=== PATIENT | male | born 1970 | race Hispanic/Latino ===

== ENCOUNTER 2018-02-20 10:20 | Emergency (ER) | payer SELFPAY ==
--- NOTE | 2018-02-20 11:52 | RAD ---
TWO VIEWS CHEST: Date: 02-20-18 History: Cough. FINDINGS: There is no pneumothorax, pleural fluid, lobar consolidation or alveolar edema. Inspiration is shallo w. Heart and mediastinal contours are grossly unremarkable. IMPRESSION: No focal consolidation or alveolar edema. POS: [facility]
== END 2018-02-20 11:52 | disposition home or self-care (01) ==
LOC: SCSER 10:20
DX: J06.9 Acute upper respiratory infection, unspecified (principal); E11.9 Type 2 diabetes mellitus without complications; F41.9 Anxiety disorder, unspecified; Z79.84 Long term (current) use of oral hypoglycemic drugs; Z79.82 Long term (current) use of aspirin; Z79.899 Other long term (current) drug therapy
CPT/HCPCS: 71046

== ENCOUNTER 2018-10-12 19:27 | Emergency (ER) | payer OTHER, SELFPAY ==
[2018-10-12 19:45] LABS: #Basophils 0.1 thou/uL (0.0-0.2); #Eosinphils 0.1 thou/uL (0.0-0.7); #Lymphocytes 2.6 thou/uL (1.20-3.40); #Monocytes 0.6 thou/uL (0.11-0.59); #Neutrophils 4.1 thou/uL (1.40-6.50); %Eosinophils 1.3 % (0.0-10.0); %Lymphocytes 35.3 % (21.0-51.0); %Monocytes 7.8 % (0.0-10.0); %Neutrophils 54.5 % (42.0-75.0); Hemoglobin 15.1 g/dL (14.0-18.0); Mean Corpuscular Hemoglobin 31.5 pg (27.0-31.0); Mean Corpuscular Volume 87.6 fL (78.0-98.0); Mean Platelet Volume 9.3 fL (7.4-10.4); Platelet Count 204 thou/uL (130-400); RBC Distribution Width 11.9 % (11.5-14.5); Red Blood Cell (RBC) Count 4.78 mill/uL (4.70-6.10); White Blood Cell (WBC) Count 7.4 thou/uL (4.8-10.8)
[2018-10-12 20:05] LABS: ALT (SGPT) 27 U/L (8-55); AST (SGOT) 24 U/L (5-34); Albumin 4.5 g/dL (3.5-5.0); Alkaline Phosphatase 123 U/L (40-150); Anion Gap 19 mmol/L (10-20); BUN (Urea Nitrogen) 16 mg/dL (8.9-20.6); Bilirubin, Total 0.5 mg/dL (0.2-1.2); CK (CPK) 387 U/L (30-200); Calc. Creatinine Clearance 0 mL/min (70-130); Calcium 9.7 mg/dL (7.8-10.44); Carbon Dioxide 19 mmol/L (22-29); Chloride 102 mmol/L (98-107); Estimated GFR-MDRD 63; Globulin 4.3 g/dL (2.4-3.5); Glucose 265 mg/dL (70-105); Lipase 80 U/L (8-78); Potassium 3.9 mmol/L (3.5-5.1); Protein, Total 8.8 g/dL (6.0-8.3); Sodium 136 mmol/L (136-145)
--- NOTE | 2018-10-12 21:02 | RAD ---
CHEST ONE VIEW: 10/12/18 HISTORY: Chest pain. COMPARISON: 02/20/18. FINDINGS: The cardiac silhouette is magnified by projection. Pulmonary vasculature is unremarkable. Mediastinum is midline. No lobar consolidation or evidence of pneumothorax. radiation monitor leads overlie the ch est. IMPRESSION: No active cardiopulmonary abnormalities are demonstrated. POS: [facility]
[2018-10-12 21:11] LABS: CKMB 7.2 ng/mL (0-6.6)
[2018-10-12] MEDS ORDERED: Cyclobenzaprine 10 MG TAB ONE (21:15)
[2018-10-12] MEDS ORDERED: Aspirin Chewable 81 MG TAB ONE (21:15)
[2018-10-12] MEDS ORDERED: Ketorolac Tromethamine 30 MG/ML VIAL ONE (21:15)
[2018-10-12 23:50] LABS: CKMB 6.4 ng/mL (0-6.6)
--- NOTE | 2018-10-14 22:30 | EKG ---
Test Reason : Blood Pressure : / mmHG Vent. Rate : 093 BPM Atrial Rate : 093 BPM P-R Int : 152 ms QRS Dur : 100 ms QT Int : 350 ms P-R-T Axes : 025 -28 -21 degrees QTc Int : 435 ms Normal sinus rhythm Nonspecific ST abnormality Abnormal ECG Confirmed by HARINDER BARROW D.O. ([id number]), editor farm journal ROSA ASHLEY ([id number]) on 10/14/2018 10:29:35 PM Referred By: Confirmed By:HARINDER BARROW D.O.
== END 2018-10-13 00:09 | disposition home or self-care (01) ==
LOC: ERS 19:27
DX: S20.212A Contusion of left front wall of thorax, initial encounter (principal); E11.9 Type 2 diabetes mellitus without complications; F41.9 Anxiety disorder, unspecified; Z79.899 Other long term (current) drug therapy; Z79.84 Long term (current) use of oral hypoglycemic drugs; W22.8XXA Striking against or struck by other objects, initial encounter
CPT/HCPCS: 36415; 71045; 80053; 82550; 82553; 83690; 84484; 85025; 93005; 94760; 96374; J1885

== ENCOUNTER 2018-10-31 09:02 | Emergency (ER) | payer OTHER ==
--- NOTE | 2018-10-31 10:13 | RAD ---
XR Chest Pa Lat STANDARD HISTORY: Cough COMPARISON: 02/20/2018 FINDINGS: The heart size normal. The lungs are well expanded without focal areas of consolidation, pn eumothoraces or pleural effusions. No acute osseous abnormalities are seen. IMPRESSION: No radiographic evidence of acute cardiopulmonary process.
== END 2018-10-31 10:23 | disposition home or self-care (01) ==
LOC: SCSER 09:02
DX: J06.9 Acute upper respiratory infection, unspecified (principal); E78.5 Hyperlipidemia, unspecified; I10 Essential (primary) hypertension; E11.9 Type 2 diabetes mellitus without complications; F41.9 Anxiety disorder, unspecified; Z79.82 Long term (current) use of aspirin; Z79.84 Long term (current) use of oral hypoglycemic drugs; Z79.899 Other long term (current) drug therapy
CPT/HCPCS: 71046

== ENCOUNTER 2019-04-25 09:28 | Outpatient (CLI) | payer OTHER ==
--- NOTE | 2019-04-25 12:17 | RAD ---
LEFT SHOULDER ARTHROGRAM: HISTORY: Left shoulder pain. EXPOSURE: 1.5 minutes. 227.3 mcg/m2. FINDINGS: Initial 3 view shoulder radiograph demonstrates chronic change. There appears to be a possible Hill-S achs and reverse Hill-Sachs injury. Irregularity involving the inferior labrum is noted. There is calcification of rotator cuff tendon insertion site. Successful left shoulder arthrogram. A total of 16 cc of the contrast admixture was administered in t he joint space. TECHNIQUE: Consent obtained to perform left shoulder arthrogram. Left shoulder was prepped and draped in sterile fashion. 1% lidocaine, buffered with sodium carbonate was used for local anesthesia. Under fluoroscopic guidance, a 22-gauge spinal needle was advanced into the joint space. A total of 16 cc o f contrast admixture was administered to the joint space. Patient tolerated the procedure well. No immediate or postprocedural complications. IMPRESSION: Successful left shoulder arthrogram. Refer to post arthrogram MRI for further detail. Transcribed Date/Time: 04/25/2019 2:06 PM
--- NOTE | 2019-04-25 13:53 | MRI ---
POSTARTHROGRAM MRI OF LEFT SHOULDER PERFORMED WITH CONTRAST ENHANCEMENT: HISTORY: Left shoulder pain. FINDINGS: There is significant motion artifact on this examination. This significant degrades the quality of t he exam. There is some minimal arthrosis of the AC joint. The supra as well as infraspinatus tendons appear intact. There is some calcification associated wit h the supraspinatus tendon consistent with hydroxyapatite deposition. Some minimal fluid or edema ch laith seen associated with the subacromial subdeltoid recess. The subscapularis muscle and tendon are intact. The biceps tendon is normal in position within the b icipital groove. Although there is significant motion artifact present, there does appear to be a SLAP-type lesion of the superior labrum. Difficult to assess its extent. The inferior glenohumeral ligamentous and labr al complex appears unremarkable. IMPRESSION: 1. Limited examination due to motion artifact. 2. Superior labrum anterior to posterior-type tear of the superior labrum. 3. Evidence of calcification associated with the supraspinatus tendon insertion. POS: [facility]
== END 2019-04-25 09:29 | disposition home or self-care (01) ==
LOC: RAD 09:28
PROVIDERS: ATTEND Pediatrics Sports Medicine
DX: M25.512 Pain in left shoulder (principal); S43.432A Superior glenoid labrum lesion of left shoulder, initial encounter; M25.812 Other specified joint disorders, left shoulder
CPT/HCPCS: 23350

== ENCOUNTER 2019-05-21 05:50 | Outpatient (CLI) | payer OTHER ==
[2019-05-21 11:59] LABS: #Basophils 0.1 thou/uL (0.0-0.2); #Eosinphils 0.1 thou/uL (0.0-0.7); #Lymphocytes 2.2 thou/uL (1.20-3.40); #Monocytes 0.3 thou/uL (0.11-0.59); #Neutrophils 2.7 thou/uL (1.40-6.50); %Basophils 1.3 % (0.0-1.0); %Eosinophils 2.4 % (0.0-10.0); %Lymphocytes 40.7 % (21.0-51.0); %Monocytes 6.3 % (0.0-10.0); %Neutrophils 49.3 % (42.0-75.0); Hemoglobin 14.9 g/dL (14.0-18.0); Mean Corpuscular HGB CONC 33.7 g/dL (32.0-36.0); Mean Corpuscular Hemoglobin 29.5 pg (27.0-31.0); Mean Corpuscular Volume 87.4 fL (78.0-98.0); Mean Platelet Volume 9.3 fL (7.4-10.4); Platelet Count 182 thou/uL (130-400); RBC Distribution Width 11.8 % (11.5-14.5); Red Blood Cell (RBC) Count 5.05 mill/uL (4.70-6.10); White Blood Cell (WBC) Count 5.4 thou/uL (4.8-10.8)
[2019-05-21 12:26] LABS: Anion Gap 15 mmol/L (10-20); BUN (Urea Nitrogen) 17 mg/dL (8.9-20.6); Calc. Creatinine Clearance 0 mL/min (70-130); Calcium 9.5 mg/dL (7.8-10.44); Carbon Dioxide 22 mmol/L (22-29); Chloride 103 mmol/L (98-107); Estimated GFR-MDRD 84; Glucose 330 mg/dL (70-105); Potassium 4.3 mmol/L (3.5-5.1); Sodium 136 mmol/L (136-145)
--- NOTE | 2019-05-21 16:29 | EKG ---
Test Reason : Blood Pressure : / mmHG Vent. Rate : 074 BPM Atrial Rate : 074 BPM P-R Int : 162 ms QRS Dur : 110 ms QT Int : 378 ms P-R-T Axes : 045 -20 -16 degrees QTc Int : 419 ms Normal sinus rhythm Nonspecific ST-T changes When compared with ECG of 27-DEC-2018 12:12, No significant change was found Confirmed by DR. Lillie CASTLE ([id number]) on 05/21/2019 4:29:22 PM Referred By: IERO Confirmed By:DR. Lillie CASTLE
== END 2019-05-21 05:51 | disposition home or self-care (01) ==
LOC: LABBT 05:50
PROVIDERS: ATTEND Orthopaedic Surgery
DX: Z01.818 Encounter for other preprocedural examination (principal)
CPT/HCPCS: 80048; 85025; 93005; 93010

== ENCOUNTER 2019-05-23 08:56 | Day surgery (SDC) | payer OTHER ==
[2019-05-21 10:50] VITALS: BMI 38.0
[2019-05-23] MEDS ORDERED: Fentanyl 100 MCG/2 ML VIAL ONE ×2 (09:28→09:54)
[2019-05-23] MEDS ORDERED: Midazolam HCl 2 mg/2 ml Vial ONE (09:28)
[2019-05-23] MEDS ORDERED: Lidocaine 2% Jelly 5 ML TUBE ONE (10:04)
[2019-05-23] MEDS ORDERED: Clindamycin/D5W 900 mg/50 ml Premix Bag ONE (10:07)
[2019-05-23] MEDS ORDERED: traMADol HCl 50 MG TAB PO PRN ×2 (10:27)
[2019-05-23] MEDS ORDERED: Promethazine HCl 25 MG/ML VIAL IM PRN (10:27)
[2019-05-23] MEDS ORDERED: Ondansetron PF 4 MG/2 ML Vial IVP PRN (10:27)
[2019-05-23] MEDS ORDERED: Ketorolac Tromethamine 30 MG/ML VIAL IVP PRN (10:27)
[2019-05-23] MEDS ORDERED: Ropivacaine 0.2% 550 ML 550 ML NERVE BLCK SCH (10:27)
[2019-05-23] MEDS ORDERED: HYDROcodone/Acetaminophen 5/325 mg Tablet PO PRN ×2 (10:27)
[2019-05-23] MEDS ORDERED: Zolpidem Tartrate 5 MG TAB PO PRN (10:27)
[2019-05-23] MEDS ORDERED: PROPOFOL 200 MG/20 ML VIAL ONE (10:28)
[2019-05-23] MEDS ORDERED: Rocuronium Bromide 10 MG/ML (10ML VIAL) ONE (10:28)
[2019-05-23] MEDS ORDERED: Ropivacaine 0.5% HCl/PF (150 MG/30 ML VIAL) ONE (10:28)
[2019-05-23] MEDS ORDERED: Lidocaine 1% PF 5 ML VIAL ONE (10:28)
[2019-05-23] MEDS ORDERED: PHENYLEPHRINE-NS 100 MCG/ML 10 ML SYRINGE ONE (10:28)
[2019-05-23] MEDS ORDERED: ePHEDrine/0.9% NaCl/PF SYRINGE 50 mg/10 ml ONE (10:28)
[2019-05-23] MEDS ORDERED: Ropivacaine 0.2% HCl/PF (40 MG/20 ML VIAL) ONE (10:28)
[2019-05-23] MEDS ORDERED: Glycopyrrolate 0.2 MG/ML 5 ML SYRINGE ONE (10:28)
[2019-05-23] MEDS ORDERED: Ondansetron PF 4 MG/2 ML Vial ONE (10:28)
[2019-05-23] MEDS ORDERED: Bupivacaine/Epinephrine 0.25% 30 ML VIAL ONE ×2 (10:53)
[2019-05-23] MEDS ORDERED: Bupivacaine HCl 0.25%/Epi 0.0005/PF 10 ML VIAL FS ONE (11:06)
--- NOTE | 2019-05-24 14:18 | OP ---
DATE OF PROCEDURE: 05/23/2019 PREOPERATIVE DIAGNOSES: Left shoulder impingement, degenerative superior labrum anterior and posterior tear, and rotator cuff tendinosis versus tear. POSTOPERATIVE DIAGNOSES: 1. Left shoulder impingement, left shoulder degenerative superior labrum anterior and posterior tear. 2. Small grade 4 lesion inferior aspect of the glenoid, approximately 6 mm in length, 3 mm in width. 3. Degenerative inferior and posterior inferior labral tear. PROCEDURES PERFORMED: 1. Left shoulder arthroscopy with debridement and shaving. 2. Left shoulder subacromial decompression. 3. Open biceps tenodesis, left shoulder. CASTING ROOM HELPER: Xavier Silva PA-C ESTIMATED BLOOD LOSS: Minimal. COMPLICATIONS: None. ANESTHESIA: He had a block as well as a general anesthetic. DISPOSITION: He went to recovery room in stable condition. IMPLANTS: 7 x 23 Bio[employer]posite Bio-Tenodesis screw. INDICATIONS FOR PROCEDURE: A 49-year-old male who has been treated for left shoulder pain and discomfort for a number of months and has failed nonoperative treatment. At this time, he opted to have the surgery. DESCRIPTION OF PROCEDURE: After all appropriate consent forms were explained and signed, he was taken to the operative room and at this time, he was given a general anesthetic. Once the level of anesthesia was appropriate, he was rolled into the right lateral decubitus position with all bony prominences well padded. Axillary roll was placed underneath the right axilla. Beanbag was inflated to hold in this position. The arm was taken through full range of motion and then suspended with 15 pounds in standard arthroscopic fashion. The left shoulder and upper extremity were then prepped and draped in standard surgical fashion. Bony anatomical landmarks were then drawn out and the subacromial space was infiltrated with Marcaine with epinephrine. Posterior portal was established. The scope was placed into the shoulder joint. Anterior working portal was then made just to the biceps tendon. Diagnostic arthroscopy commenced. Humeral head and glenoid overall in good condition. There was an area in the most inferior aspect of the glenoid with some an unstable chondral flaps, which had visible bone underneath this. The shaver was used to removing unstable chondral flaps. Surrounding this was degenerative, inferior and posterior inferior labrum, which was also debrided with a shaver at this time. There was significant degenerative SLAP tear and the shaver was used at this time and also smooth this area out. There was a significant amount of synovitis circumferentially around the biceps and the [employer] probe was used to coagulate any brisk venous bleeding. The rotator cuff itself appeared to be intact from the undersurface and the subscapularis also appeared to be intact. At this time, a green cannula was placed anteriorly and a needle was used to place a suture through the biceps tendon. The biceps was then cut off its labral insertion using the arthroscopic scissors. Once this was done, the scope was repositioned into the subacromial space. Lateral working portal was made. Bursa was removed from off the underlying cuff and a small bony decompression was performed using the [employer] as well as a shaver. The rotator cuff while preparing to have some area of degeneration upon significant probing, was found to be completely intact. Therefore, the scope was removed and the shoulder was drained. At this time, we went about performing our open biceps tenodesis. A #15 blade was used to incise down through skin. Bovie was used to clear any brisk venous bleeding. Deltoid fascia was opened sharply. Finger dissection was then used to dissect down through the deltoid fibers to the underlying transverse humeral ligament. This was opened up and the biceps tendon was pulled out into the wound. The tendon itself was sutured, so that the intra-articular portion would be removed and once this was done, we then placed our pin into the groove followed by reaming with a 7 mm reamer to a depth of 25. We then placed our 7 x 23 [employer] Bio-Tenodesis screw in standard fashion. We tied the suture to overtop of this, so that the screw could not back out. We then went ahead and thoroughly irrigated and dried. We allowed our deltoid to fall upon itself and a Vicryl suture was used in a running fashion to close our deltoid fascia. A 2-0 Vicryl sutures were then used to close the small incision. Portals were each closed with a simple nylon stitch. Bulky sterile dressing was applied. The patient was then awakened and taken to recovery room in stable condition. All counts were correct at the end of the case, and he did receive preoperative IV antibiotics. Job ID: [id number]
== END 2019-05-23 14:30 | disposition home or self-care (01) ==
LOC: SDC 08:56
PROVIDERS: ATTEND Orthopaedic Surgery
PROC: 0LS20ZZ Reposition Left Shoulder Tendon, Open Approach (ICD-10-PCS; principal; 2019-05-23)
PROC: 3E0T3BZ Introduction of Anesthetic Agent into Peripheral Nerves and Plexi, Percutaneous Approach (ICD-10-PCS; principal; 2019-05-23)
PROC: 0RNK4ZZ Release Left Shoulder Joint, Percutaneous Endoscopic Approach (ICD-10-PCS; principal; 2019-05-23)
PROC: 0RHK04Z Insertion of Internal Fixation Device into Left Shoulder Joint, Open Approach (ICD-10-PCS; principal; 2019-05-23)
PROC: 0RBK4ZZ Excision of Left Shoulder Joint, Percutaneous Endoscopic Approach (ICD-10-PCS; principal; 2019-05-23)
DX: S43.432A Superior glenoid labrum lesion of left shoulder, initial encounter (principal); S43.492A Other sprain of left shoulder joint, initial encounter; M25.812 Other specified joint disorders, left shoulder; M65.812 Other synovitis and tenosynovitis, left shoulder; M75.32 Calcific tendinitis of left shoulder; G89.18 Other acute postprocedural pain; K21.9 Gastro-esophageal reflux disease without esophagitis; E11.9 Type 2 diabetes mellitus without complications; E78.5 Hyperlipidemia, unspecified; E66.9 Obesity, unspecified; Z68.38 Body mass index [BMI] 38.0-38.9, adult; Z79.1 Long term (current) use of non-steroidal anti-inflammatories (NSAID); Z79.82 Long term (current) use of aspirin; Z79.84 Long term (current) use of oral hypoglycemic drugs; Z79.899 Other long term (current) drug therapy; Z88.1 Allergy status to other antibiotic agents; Z88.8 Allergy status to other drugs, medicaments and biological substances
CPT/HCPCS: A4306; C1713; J2001; J2250; J2405; J2704; J2795; J3010; J3490

== ENCOUNTER 2019-06-09 12:19 | Emergency (ER) | payer OTHER ==
[2019-06-09] MEDS ORDERED: Morphine 10 MG/ML VIAL ONE (12:45)
[2019-06-09 12:47] LABS: #Basophils 0.1 thou/uL (0.0-0.2); #Eosinphils 0.2 thou/uL (0.0-0.7); #Lymphocytes 2.1 thou/uL (1.20-3.40); #Monocytes 0.4 thou/uL (0.11-0.59); #Neutrophils 3.4 thou/uL (1.40-6.50); %Basophils 1.7 % (0.0-1.0); %Eosinophils 2.6 % (0.0-10.0); %Lymphocytes 34.2 % (21.0-51.0); %Monocytes 6.1 % (0.0-10.0); %Neutrophils 55.4 % (42.0-75.0); Hemoglobin 15.2 g/dL (14.0-18.0); Mean Corpuscular HGB CONC 33.5 g/dL (32.0-36.0); Mean Corpuscular Hemoglobin 29.9 pg (27.0-31.0); Mean Corpuscular Volume 89.3 fL (78.0-98.0); Mean Platelet Volume 10.5 fL (7.4-10.4); Platelet Count 212 thou/uL (130-400); RBC Distribution Width 12.3 % (11.5-14.5); Red Blood Cell (RBC) Count 5.09 mill/uL (4.70-6.10); White Blood Cell (WBC) Count 6.1 thou/uL (4.8-10.8)
[2019-06-09 13:03] LABS: ALT (SGPT) 30 U/L (8-55); AST (SGOT) 19 U/L (5-34); Albumin 4.3 g/dL (3.5-5.0); Alkaline Phosphatase 114 U/L (40-110); Anion Gap 20 mmol/L (10-20); BUN (Urea Nitrogen) 15 mg/dL (8.9-20.6); Bilirubin, Total 0.2 mg/dL (0.2-1.2); CK (CPK) 123 U/L (30-200); Calc. Creatinine Clearance 0 mL/min (70-130); Calcium 9.9 mg/dL (7.8-10.44); Carbon Dioxide 17 mmol/L (22-29); Chloride 104 mmol/L (98-107); Estimated GFR-MDRD Greater than 90; Globulin 3.5 g/dL (2.4-3.5); Glucose 386 mg/dL (70-105); Potassium 4.7 mmol/L (3.5-5.1); Protein, Total 7.8 g/dL (6.0-8.3); Sodium 136 mmol/L (136-145)
--- NOTE | 2019-06-09 14:08 | ULT ---
Left upper extremity venous Doppler ultrasound: 06/09/2019 COMPARISON: None HISTORY: Pain, assess for DVT TECHNIQUE: Multiplanar grayscale sonographic imaging of the venous structures of the left upper extre mity obtained with color flow and spectral analysis FINDINGS: Left internal jugular vein, subclavian vein, axillary vein, brachial vein, radial vein, uln ar vein, cephalic vein, and basilic vein are patent. Normal blood flow, augmentation, and compression within the deep venous system of the left upper extremity. IMPRESSION: No evidence for deep venous thrombosis of the left upper extremity.
== END 2019-06-09 14:20 | disposition home or self-care (01) ==
LOC: SCSER 12:19
DX: G89.18 Other acute postprocedural pain (principal); M79.602 Pain in left arm; M79.81 Nontraumatic hematoma of soft tissue; E78.5 Hyperlipidemia, unspecified; E78.00 Pure hypercholesterolemia, unspecified; I10 Essential (primary) hypertension; G37.3 Acute transverse myelitis in demyelinating disease of central nervous system; E11.9 Type 2 diabetes mellitus without complications; F41.9 Anxiety disorder, unspecified
CPT/HCPCS: 36415; 80053; 82550; 84484; 85025; 93005; 96372; J2270

== ENCOUNTER 2019-07-25 07:53 | Outpatient (CLI) | payer OTHER ==
--- NOTE | 2019-07-25 09:38 | MRI ---
MRI CERVICAL SPINE WITHOUT IV CONTRAST: INDICATIONS: History of myelitis and radiculopathy of the cervical spine. Excruciating left arm and shoulder pain since May 2019. History of rotator cuff surgery in May. Pain and numbness. FINDINGS: Mild motion artifact slightly limits image detail. There is straightening of the normal cervical lordosis. Bone marrow signal intensity appears within n ormal limits. The visualized aspects of the posterior fossa appear within normal limits. The visualized prevertebra l and paravertebral soft tissues are normal appearing. The craniocervical junction appears within normal limits. At C2-C3 there is no appreciable central canal or neural foraminal narrowing. At C3-C4 there is a mild broad-based bulge with mild facet joint degenerative change and uncovertebra l hypertrophy. This is inducing mild bilateral neural foraminal narrowing. This is slightly more pron ounced than seen on a comparison MRI cervical spine dated 12/25/2009. At C4-C5 there is a broad-based bulge with uncovertebral hypertrophy and facet joint degenerative audra nge inducing mild to moderate right and mild left neural foraminal narrowing. There is also mild cent ral canal narrowing without cord compression. The neural foraminal narrowing and central canal narrow ing has progressed from the prior exam. At C5-C6 there is a broad-based bulge with a superimposed central disk protrusion inducing mild centr al canal narrowing without definite cord compression. There is mild right and moderate left neural fo raminal narrowing which has progressed from the prior exam due to uncovertebral hypertrophy and facet degenerative change. At C6-C7 there is a broad-based bulge with a superimposed central to left paracentral disk protrusion . The protrusion causes moderate ventral effacement of the spinal cord and measures approximately 1 x 1.5 cm in its greatest mediolateral and craniocaudal dimensions respectively. Motion artifact at the acquisition of C6-C7 slightly limits image detail. There is at least mild bilateral neural foraminal narrowing which has slightly progressed from the prior exam. At C7-T1 there is no appreciable central canal or neural foraminal narrowing. IMPRESSION: 1. Worsening multilevel spondylosis of the cervical spine. This is most pronounced at C6-C7 where the re is a new central to left paracentral disk protrusion causing moderate effacement of the ventral to left ventrolateral spinal cord without overt spinal cord signal abnormality; however, motion artifac t degrades image quality. 2. Worsening multilevel neural foraminal narrowing, as detailed above. 3. Small central protrusion at C5-C6 inducing mild central canal narrowing without definite cord comp ression. 4. Mild central canal narrowing at C4-C5 without cord compression. POS: [facility]
== END 2019-07-25 07:54 | disposition home or self-care (01) ==
LOC: TBSIIMAG 07:53
PROVIDERS: ATTEND Psychiatry & Neurology Neurology
DX: M47.22 Other spondylosis with radiculopathy, cervical region (principal); M50.122 Cervical disc disorder at C5-C6 level with radiculopathy; G04.89 Other myelitis; M48.02 Spinal stenosis, cervical region
CPT/HCPCS: 72141

== ENCOUNTER 2019-08-14 14:45 | Emergency (ER) | payer OTHER ==
[2019-08-14] MEDS ORDERED: HYDROcodone/Acetaminophen 10/325 mg Tablet ONE (18:11)
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
== END 2019-08-14 19:24 | disposition home or self-care (01) ==
LOC: ERS 14:45
DX: S16.1XXA Strain of muscle, fascia and tendon at neck level, initial encounter (principal); E78.00 Pure hypercholesterolemia, unspecified; E78.5 Hyperlipidemia, unspecified; I10 Essential (primary) hypertension; E11.9 Type 2 diabetes mellitus without complications; F41.9 Anxiety disorder, unspecified; V89.2XXA Person injured in unspecified motor-vehicle accident, traffic, initial encounter
CPT/HCPCS: 72040; 72100

== ENCOUNTER 2020-04-11 17:04 | Emergency (ER) | payer OTHER, SELFPAY ==
[2020-04-11 17:41] LABS: #Basophils 0.1 thou/uL (0.0-0.2); #Eosinphils 0.1 thou/uL (0.0-0.7); #Lymphocytes 1.9 thou/uL (1.20-3.40); #Monocytes 0.5 thou/uL (0.11-0.59); #Neutrophils 3.5 thou/uL (1.40-6.50); %Basophils 0.9 % (0.0-1.0); %Eosinophils 1.2 % (0.0-10.0); %Lymphocytes 31.6 % (21.0-51.0); %Monocytes 7.6 % (0.0-10.0); %Neutrophils 58.7 % (42.0-75.0); Hemoglobin 14.2 g/dL (14.0-18.0); Mean Corpuscular Hemoglobin 30.9 pg (27.0-31.0); Mean Corpuscular Volume 88.2 fL (78.0-98.0); Mean Platelet Volume 9.7 fL (7.4-10.4); Platelet Count 171 thou/uL (130-400); RBC Distribution Width 11.6 % (11.5-14.5); Red Blood Cell (RBC) Count 4.58 mill/uL (4.70-6.10)
[2020-04-11 18:01] LABS: ALT (SGPT) 33 U/L (8-55); AST (SGOT) 26 U/L (5-34); Albumin 3.8 g/dL (3.5-5.0); Alkaline Phosphatase 109 U/L (40-110); Anion Gap 18 mmol/L (10-20); BUN (Urea Nitrogen) 13 mg/dL (8.4-25.7); Bilirubin, Total 0.3 mg/dL (0.2-1.2); Calc. Creatinine Clearance 0 mL/min (70-130); Calcium 8.4 mg/dL (7.8-10.44); Carbon Dioxide 17 mmol/L (22-29); Chloride 102 mmol/L (98-107); Estimated GFR-MDRD 69; Globulin 3.3 g/dL (2.4-3.5); Glucose 424 mg/dL (70-105); Potassium 4.3 mmol/L (3.5-5.1); Protein, Total 7.1 g/dL (6.0-8.3); Sodium 133 mmol/L (136-145)
[2020-04-11] MEDS ORDERED: Insulin Regular 300 UNITS/3 ML VIAL ONE (18:26)
== END 2020-04-11 19:15 | disposition home or self-care (01) ==
LOC: ERS 17:04
DX: E11.65 Type 2 diabetes mellitus with hyperglycemia (principal); R55 Syncope and collapse; E78.00 Pure hypercholesterolemia, unspecified; E78.5 Hyperlipidemia, unspecified; I10 Essential (primary) hypertension; F41.9 Anxiety disorder, unspecified; Z79.82 Long term (current) use of aspirin; Z79.899 Other long term (current) drug therapy
CPT/HCPCS: 36415; 36416; 80053; 82010; 85025; 96361; 96374; J1815

== ENCOUNTER 2020-04-18 13:33 | Emergency (ER) | payer OTHER, SELFPAY ==
[~2020-04-18 13:33] MED LIST: Iopamidol-370 76% 500 ML 1 ML ONE
[2020-04-18 14:03] LABS: #Eosinphils 0.1 thou/uL (0.0-0.7); #Lymphocytes 2.1 thou/uL (1.20-3.40); #Monocytes 0.4 thou/uL (0.11-0.59); #Neutrophils 3.8 thou/uL (1.40-6.50); %Basophils 0.7 % (0.0-1.0); %Lymphocytes 32.7 % (21.0-51.0); %Monocytes 5.5 % (0.0-10.0); %Neutrophils 59.1 % (42.0-75.0); Hemoglobin 15.9 g/dL (14.0-18.0); Mean Corpuscular Hemoglobin 30.7 pg (27.0-31.0); Mean Corpuscular Volume 87.8 fL (78.0-98.0); Mean Platelet Volume 9.6 fL (7.4-10.4); Platelet Count 181 thou/uL (130-400); RBC Distribution Width 11.6 % (11.5-14.5); White Blood Cell (WBC) Count 6.5 thou/uL (4.8-10.8)
[2020-04-18 14:13] LABS: Bilirubin Negative (Negative); Blood, Urine Negative (Negative); Clarity Clear (Clear); Glucose, Urine (Dipstick) Greater than 1000 mg/dL (Negative); Ketone, Urine 10 mg/dL (Negative); Leukocyte Negative Leu/uL (Negative); Nitrite Negative (Negative); Protein, Urine (Dipstick) Negative (Neg-Trace); Specific Gravity, Urine 1.038 (1.002-1.036); Urobilinogen Normal mg/dL (Less than 2); pH, Urine 5.5 (5.0-9.0)
[2020-04-18 14:26] LABS: ALT (SGPT) 36 U/L (8-55); AST (SGOT) 30 U/L (5-34); Albumin 4.3 g/dL (3.5-5.0); Alkaline Phosphatase 124 U/L (40-110); Anion Gap 15 mmol/L (10-20); BUN (Urea Nitrogen) 15 mg/dL (8.4-25.7); Bilirubin, Total 0.5 mg/dL (0.2-1.2); Calc. Creatinine Clearance 0 mL/min (70-130); Calcium 9.4 mg/dL (7.8-10.44); Carbon Dioxide 22 mmol/L (22-29); Chloride 101 mmol/L (98-107); Estimated GFR-MDRD 81; Globulin 3.6 g/dL (2.4-3.5); Glucose 346 mg/dL (70-105); Potassium 4.4 mmol/L (3.5-5.1); Protein, Total 7.9 g/dL (6.0-8.3); Sodium 134 mmol/L (136-145)
[2020-04-18] MEDS ORDERED: Azithromycin 250 MG TAB ONE (16:22)
--- NOTE | 2020-04-18 17:53 | CT ---
CT ABDOMEN AND PELVIS WITH IV CONTRAST: 04/18/20 INDICATIONS: Left lower quadrant abdominal pain. Diarrhea. FINDINGS: The lung bases are clear. Liver, spleen and pancreas unremarkable. Stomach and duodenum unremarkable. Adrenal glands normal. The kidneys reveal numerous small nonobstructing calculi in the upper collecting structures of both k idneys. The largest of these calculi is seen in the lower pole collecting structures if the left kidn ey measuring in the 1.0 cm range. There are numerous small renal cystic lesions bilaterally. The largest measures approximately 2 cm in the inferior left kidney. There is no evidence of hydronephrosis. The ureters are normal caliber and unremarkable. The urinary bladder is poorly distended but appears unremarkable as visualized. Small bowel loops are normal caliber and there is no evidence of mural thickening or enteritis. The a ppendix appears normal. The colon is unremarkable with scattered stool and gas. A few scattered diverticula in the left colon . Aorta normal caliber. No mass or adenopathy. No free fluid. Osseous structures unremarkable with dege nerative spine changes seen in the lower thoracic spine with bridging osteophytes in the lower thorac ic and upper lumbar spine. IMPRESSION: 1. Numerous nonobstructing calculi in the upper collecting structures of both kidneys. No obstru ctive uropathy. 2. Numerous bilateral renal cystic lesions as described. 3. No acute process identified. POS: [facility]
== END 2020-04-18 18:14 | disposition home or self-care (01) ==
LOC: ERS 13:33
DX: R19.7 Diarrhea, unspecified (principal); E86.0 Dehydration; E78.5 Hyperlipidemia, unspecified; E78.00 Pure hypercholesterolemia, unspecified; I10 Essential (primary) hypertension; E11.9 Type 2 diabetes mellitus without complications; F41.9 Anxiety disorder, unspecified; Z79.82 Long term (current) use of aspirin; Z79.899 Other long term (current) drug therapy
CPT/HCPCS: 36415; 74177; 80053; 81003; 83690; 85025; 96360; Q9967

== ENCOUNTER 2020-06-05 06:36 | Outpatient (CLI) | payer OTHER ==
[2020-06-05 10:34] LABS: Hemoglobin 14.3 g/dL (14.0-18.0); Mean Corpuscular HGB CONC 33.5 G/DL (32.0-36.0); Mean Corpuscular Hemoglobin 29.3 PG (27.0-33.0); Mean Corpuscular Volume 87.5 fl (80.0-100.0); Mean Platelet Volume 11.7 fl (7.4-10.4); Platelet Count 204 10x3/uL (130-400); RBC Distribution Width 12.3 % (11.5-14.5); Red Blood Cell (RBC) Count 4.88 10x6/uL (4.40-5.80); White Blood Cell (WBC) Count 6.8 10x3/uL (4.5-11.0)
[2020-06-05 10:46] LABS: Anion Gap 15 mmol/L (10-20); BUN (Urea Nitrogen) 15 mg/dL (8.4-25.7); Calc. Creatinine Clearance 0 mL/min (70-130); Calcium 8.9 mg/dL (7.8-10.44); Carbon Dioxide 22 mmol/L (22-29); Chloride 103 mmol/L (98-107); Estimated GFR-MDRD 85; Glucose 379 mg/dL (70-105); Potassium 4.3 mmol/L (3.5-5.1); Sodium 136 mmol/L (136-145)
[2020-06-05 17:38] LABS: SARS-CoV-2 MS2 Positive; SARS-CoV-2 N Gene Negative; SARS-CoV-2 S Gene Negative; SARS-CoV-2 by NAA Not Detected (NotDetected); SARS-CoV-2 orf1ab Negative
== END 2020-06-05 06:37 | disposition home or self-care (01) ==
LOC: LABBT 06:36
PROVIDERS: ATTEND Urology
DX: Z01.818 Encounter for other preprocedural examination (principal); N20.0 Calculus of kidney; Z20.828 Contact with and (suspected) exposure to other viral communicable diseases
CPT/HCPCS: 80048; 85027; 87635; 93005; 93010; U0003

== ENCOUNTER 2020-06-10 06:13 | Day surgery (SDC) | payer OTHER ==
[2020-06-09 10:58] VITALS: BMI 36.1
[2020-06-10] MEDS ORDERED: Levofloxacin 500 mg/D5W 100 ml Premix Bag ONE (07:34)
[2020-06-10] MEDS ORDERED: Fentanyl 100 MCG/2 ML VIAL ONE (08:59)
[2020-06-10] MEDS ORDERED: Midazolam HCl 2 mg/2 ml Vial ONE (08:59)
[2020-06-10] MEDS ORDERED: Insulin Regular 300 UNITS/3 ML VIAL ONE (09:20)
[2020-06-10] MEDS ORDERED: Labetalol HCl 100 MG/20 ML VIAL ONE (09:38)
[2020-06-10] MEDS ORDERED: ePHEDrine 50 MG/ML VIAL ONE (09:38)
[2020-06-10] MEDS ORDERED: PROPOFOL 200 MG/20 ML VIAL ONE (09:38)
[2020-06-10] MEDS ORDERED: Lidocaine 1% PF 5 ML VIAL ONE (09:38)
[2020-06-10] MEDS ORDERED: PHENYLEPHRINE-NS 100 MCG/ML 10 ML SYRINGE ONE (09:38)
[2020-06-10] MEDS ORDERED: Ondansetron PF 4 MG/2 ML Vial ONE (09:38)
[2020-06-10] MEDS ORDERED: Esmolol 100 MG/10 ML VIAL ONE (09:38)
--- NOTE | 2020-06-10 11:31 | OP ---
DATE OF PROCEDURE: 06/10/2020 PREOPERATIVE DIAGNOSIS: Left renal stone. POSTOPERATIVE DIAGNOSIS: Left renal stone. PROCEDURE PERFORMED: Left shockwave lithotripsy. ANESTHESIA: General. COMPLICATIONS: None. ESTIMATED BLOOD LOSS: None. SPECIMEN: None. DESCRIPTION OF PROCEDURE: After informed consent, the patient was taken to the operating room, transferred to the table under his own power. Anesthesia was established. A time-out was performed, showing the correct patient, site, and procedure. Preoperative antibiotics were administered. He was prepped and draped in the supine position with his left flank over the opening in the bed. The Lithotripter was brought into contact with his left flank and the stone identified under fluoroscopy and triangulated. The stone was treated initially with 2500 shocks. However, there was still a 4-mm fragment remaining and so we continued to a total of 3000 shocks noting improved fragmentation of that final piece. By the end of the case, there was decent fragmentation of the stone. He was then awoken from anesthesia, transferred back to his hospital bed and taken to PACU in stable condition, where he was discharged home upon recovery. Job ID: [id number]
[2020-06-10] MEDS ORDERED: Ketorolac Tromethamine 30 MG/ML VIAL ONE (13:51)
[2020-06-10] MEDS ORDERED: HYDROcodone/Acetaminophen 5/325 mg Tablet ONE (14:12)
== END 2020-06-10 16:45 | disposition home or self-care (01) ==
LOC: SDC 06:13
PROVIDERS: ATTEND Urology
PROC: 0TF4XZZ Fragmentation in Left Kidney Pelvis, External Approach (ICD-10-PCS; principal; 2020-06-10)
DX: N20.0 Calculus of kidney (principal); N40.1 Benign prostatic hyperplasia with lower urinary tract symptoms; E11.9 Type 2 diabetes mellitus without complications; K21.9 Gastro-esophageal reflux disease without esophagitis; E78.5 Hyperlipidemia, unspecified; E66.9 Obesity, unspecified; Z68.36 Body mass index [BMI] 36.0-36.9, adult; Z79.82 Long term (current) use of aspirin; Z79.84 Long term (current) use of oral hypoglycemic drugs; Z79.899 Other long term (current) drug therapy; Z88.1 Allergy status to other antibiotic agents; Z88.8 Allergy status to other drugs, medicaments and biological substances
CPT/HCPCS: 36416; 93005; 93010; J1815; J1885; J1956; J2250; J2405; J2704; J3010; J3490

== ENCOUNTER 2020-06-11 02:38 | Inpatient (IN) | payer OTHER ==
[2020-06-11] MEDS ORDERED: Morphine 4 MG/ML VIAL ONE ×2 (03:06→04:06)
[2020-06-11] MEDS ORDERED: Ondansetron PF 4 MG/2 ML Vial ONE (03:06)
[2020-06-11 03:13] LABS: #Eosinphils 0.1 thou/uL (0.0-0.7); #Lymphocytes 2.6 thou/uL (1.20-3.40); #Monocytes 0.7 thou/uL (0.11-0.59); #Neutrophils 5.8 thou/uL (1.40-6.50); %Basophils 0.4 % (0.0-1.0); %Eosinophils 1.4 % (0.0-10.0); %Monocytes 7.3 % (0.0-10.0); Hemoglobin 13.2 g/dL (14.0-18.0); Mean Corpuscular HGB CONC 34.5 g/dL (32.0-36.0); Mean Corpuscular Hemoglobin 30.8 pg (27.0-31.0); Mean Corpuscular Volume 89.4 fL (78.0-98.0); Mean Platelet Volume 8.8 fL (7.4-10.4); Platelet Count 183 thou/uL (130-400); Red Blood Cell (RBC) Count 4.29 mill/uL (4.70-6.10); White Blood Cell (WBC) Count 9.3 thou/uL (4.8-10.8)
[2020-06-11 03:34] LABS: ALT (SGPT) 22 U/L (8-55); AST (SGOT) 18 U/L (5-34); Albumin 3.6 g/dL (3.5-5.0); Alkaline Phosphatase 95 U/L (40-110); Anion Gap 14 mmol/L (10-20); BUN (Urea Nitrogen) 18 mg/dL (8.4-25.7); Bilirubin, Total 0.5 mg/dL (0.2-1.2); Calc. Creatinine Clearance 0 mL/min (70-130); Calcium 8.8 mg/dL (7.8-10.44); Carbon Dioxide 26 mmol/L (22-29); Chloride 100 mmol/L (98-107); Estimated GFR-MDRD 62; Globulin 2.5 g/dL (2.4-3.5); Glucose 416 mg/dL (70-105); Lipase 325 U/L (8-78); Potassium 4.1 mmol/L (3.5-5.1); Protein, Total 6.1 g/dL (6.0-8.3); Sodium 136 mmol/L (136-145)
[2020-06-11 03:49] LABS: Bacteria/HPF None Seen HPF (None Seen); Bilirubin Negative (Negative); Blood, Urine 3+ (Negative); Clarity Clear (Clear); Glucose, Urine (Dipstick) Greater than 1000 mg/dL (Negative); Ketone, Urine Negative (Negative); Leukocyte Negative Leu/uL (Negative); Nitrite Negative (Negative); Protein, Urine (Dipstick) 10 mg/dL (Neg-Trace); RBC/HPF Greater than 50 HPF (0-3); Specific Gravity, Urine 1.041 (1.002-1.036); Squamous Epithelial None Seen HPF (0-3); Urobilinogen Normal mg/dL (Less than 2); WBC/HPF 0-3 HPF (0-3)
[2020-06-11] MEDS ORDERED: Ketorolac Tromethamine 30 MG/ML VIAL ONE (04:05)
[2020-06-11] MEDS ORDERED: Sodium Chloride 0.9% 1,000 ML IV SCH (05:45)
[2020-06-11] MEDS ORDERED: Ondansetron PF 4 MG/2 ML Vial IVP PRN (05:45)
[2020-06-11] MEDS ORDERED: Ondansetron ODT 4 MG TAB SL PRN (05:45)
[2020-06-11] MEDS ORDERED: HYDROcodone/Acetaminophen 5/325 mg Tablet PO PRN ×2 (05:45)
[2020-06-11] MEDS ORDERED: Morphine 4 MG/ML VIAL SLOW IVP PRN ×2 (05:47→05:48)
[2020-06-11 06:23] LABS: SARS-CoV-2 NAA Rapid Test Not Detected (NotDetected)
[2020-06-11] MEDS ORDERED: HYDROcodone/Acetaminophen 5/325 mg Tablet ONE (06:29)
[2020-06-11] MEDS ORDERED: Morphine 2 MG/ML VIAL ONE (07:26)
--- NOTE | 2020-06-11 07:55 | CON ---
DATE OF CONSULTATION: REASON FOR CONSULT: Status post ESWL, left retroperitoneal hematoma. HISTORY OF PRESENT ILLNESS: Mr. Lama is a pleasant 50-year-old male, with history of recurrent kidney stone, followed by Dr. Mosqueda. He underwent ESWL about 5 or 6 years ago with stent placement. He presented to the emergency room on April 18, CT which I reviewed myself demonstrates multiple bilateral renal calculi, nonobstructing, largest in the left lower pole about 9 mm with stone to skin distance about 12 cm. He underwent ESWL uneventfully by Dr. Mosqueda yesterday, however, had sudden onset of diffuse abdominal pain and back pain with no gross hematuria, fever, chills. Thus, he presented to the emergency room. Upon arrival, his vital signs are stable; however, he has significant pain rated 10/10 on the pain scale, constant in nature. CT repeated, noncontrast, which I reviewed myself demonstrates left subcapsular hematoma with bilateral stone nidus, which remains in situ. There is no gross evidence of hydronephrosis per se. However, there is mass effect from the subcapsular hematoma. His labs are stable with no evidence of anemia, gross hematuria of concern. The patient continues to have discomfort. PAST MEDICAL HISTORY: Includes diabetes, GERD, hyperlipidemia, obesity, transverse myelitis. SURGICAL HISTORY: Deviated septum repair in 2007, circumcision in 2009, left shoulder surgery on 06/06/2019, prior history of ESWL about 5 or 6 years ago. Postop day #1, status post left ESWL. FAMILY HISTORY: Positive for diabetes, alcohol abuse, heart disease, hypertension. SOCIAL HISTORY: Nonsmoker. HOME MEDICATIONS: Include: 1. Sertraline. 2. Fish oil. 3. Baby aspirin. 4. Glyburide. 5. Metformin. 6. Calcium. 8. Neurontin. ALLERGIES: NO KNOWN DRUG ALLERGIES. PHYSICAL EXAMINATION: VITAL SIGNS: Stable. 145/86, 87, 16, 98. Pain is rated 10/10 on the pain scale. 97% to 98% on room air. PERTINENT LABS: His hemoglobin is 13, relatively stable from preop. Renal function stable. UA demonstrates component of microscopic hematuria as anticipated; however, no significant gross hematuria. CT April 18, 2020, which I reviewed myself demonstrates no evidence of hydronephrosis. Bilateral nonobstructing renal calculi, largest in the left lower pole. CT of the abdomen and pelvis stone protocol obtained this morning demonstrates left subcapsular hematoma with bilateral stone nidus which remains in situ with no gross evidence of hydronephrosis. IMPRESSION AND PLAN: Mr. Lama is a 50-year-old male, with history of recurrent kidney stone, postop day #1, status post extracorporeal shock wave lithotripsy, presents with left subcapsular hematoma. patient will need to be admitted for pain control. Anticoagulation is contraindicated. informed the patient regarding admission, which he requests due to significant discomfort. will notify Dr. Mosqueda of the admission. Job ID: [id number] MTDD
[2020-06-11] MEDS ORDERED: diphenhydrAMINE 50 MG/ML VIAL IVP PRN (08:35)
[2020-06-11] MEDS ORDERED: hydrALAZINE 20 MG/ML VIAL SLOW IVP PRN (08:35)
[2020-06-11] MEDS ORDERED: glyBURIDE 5 MG TAB PO SCH (08:45)
[2020-06-11] MEDS ORDERED: metFORMIN 500 MG TAB PO SCH (08:45)
[2020-06-11 08:48] LABS: Hemoglobin 11.8 g/dL (14.0-18.0)
[2020-06-11] MEDS ORDERED: Docusate 100 MG CAP PO SCH (09:00)
--- NOTE | 2020-06-11 09:21 | CT ---
PRELIMINARY REPORT/[facility]/EMERGENCY AFTER HOURS PROCEDURE: Receipt of this report by the clinical staff was confirmed with JULITO CALIXTO MD by Sydnee Santamaria on Jun 11, 2020 03:51:00 CATARACT LENS GENERATOR. Addendum electronically signed by Sydnee Santamaria on June 11, 2020 3:52:00 AM CATARACT LENS GENERATOR EXAM: CT Abdomen and Pelvis Without Intravenous Contrast CLINICAL HISTORY: 50-year-old male patient with left flank pain for the last hour. The patient reports a history of kid josué stones and states this feels similar. The patient states that he had a lithotripsy performed by h is urology earlier this morning and was doing fine until this evening. TECHNIQUE: Axial computed tomography images of the abdomen and pelvis without intravenous contrast. Coronal and sagittal reformatted images provided. CONTRAST: None. COMPARISON: None provided. FINDINGS: LUNG BASES: Peripheral groundglass opacities in bilateral lower lobes. LIVER: Diffuse low-attenuation of the liver consistent with hepatic steatosis. No focal hepatic lesion. GALLBLADDER AND BILE DUCTS: Unremarkable. No calcified stone. No ductal dilation. PANCREAS: Unremarkable. SPLEEN: Unremarkable. ADRENAL GLANDS: Unremarkable. KIDNEYS, URETERS, AND BLADDER: Left renal subcapsular hematoma with hematocrit level.. There is perinephric stranding. There may be a small amount of blood within the retroperitoneum at the inferior aspect of the kidney. Multiple renal stones in bilateral kidneys measuring up to 6 mm. No hydronephrosis. STOMACH AND BOWEL: No obstruction. No wall thickening. No CT evidence of colitis or acute diverticulitis. APPENDIX: No CT evidence for appendicitis. PERITONEUM: No free fluid. No free air. LYMPH NODES: No lymphadenopathy. REPRODUCTIVE: Unremarkable as visualized. VASCULATURE: No aortic aneurysm. ABDOMINAL WALL AND SOFT TISSUES: Unremarkable. BONES: No fracture or suspicious osseous abnormality. IMPRESSION: 1. Acute left renal injury with subcapsular hematoma. Recommend urology consultation. 2. Bilateral nephrolithiasis. 3. Hepatic steatosis. 4. Peripheral ground glass opacities in bilateral lower lobes. This is nonspecific and may be relat ed to infectious process or subsegmental atelectasis. ELECTRONICALLY SIGNED BY: Edmundo Piper M.D. Jun 11, 2020 3:45:03 AM CATARACT LENS GENERATOR This report is intended for review by the ordering physician only, in accordance of law. If you recei ve this report in error, please call [facility] at [phone]. FINAL REPORT EMERGENCY AFTER HOURS CT ABDOMEN AND PELVIS PERFORMED WITHOUT CONTRAST: HISTORY: Left flank pain for the past hour. Patient has history of kidney stones. Had lithotripsy performed ea alex this morning. FINDINGS: Lung bases show atelectatic change. There is some mild fatty change to the liver. The spleen, pancreas, and gallbladder regions are unrem arkable. Right and left adrenal glands are normal in size. Hypodensities are seen involving the right kidney. There has been development of a large perinephric hematoma, and also fat stranding in the perinephric fat extending inferiorly along Gerota's fascia. Bilateral renal calculi are seen. No obstruction. No significant periaortic or mesenteric adenopathy. CT of pelvis was performed without contrast enhancement. No adenopathy, mass, or free fluid. IMPRESSION: 1. Bilateral nonobstructing renal calculi. 2. Large left-sided perinephric hematoma. 3. Fatty change of liver. 4. Bibasilar ground-glass changes probably related to atelectasis. Report in agreement with the preliminary report issued by [facility]. POS: [facility] [place]
[2020-06-11 09:25] LABS: Anion Gap 14 mmol/L (10-20); BUN (Urea Nitrogen) 17 mg/dL (8.4-25.7); Calc. Creatinine Clearance 0 mL/min (70-130); Calcium 8.3 mg/dL (7.8-10.44); Carbon Dioxide 23 mmol/L (22-29); Chloride 103 mmol/L (98-107); Estimated GFR-MDRD 66; Glucose 414 mg/dL (70-105); Potassium 4.2 mmol/L (3.5-5.1); Sodium 136 mmol/L (136-145)
[2020-06-11] MEDS: Sodium Chloride 0.9% 1,000 ML IV SCH ×2 (09:31→20:10)
[2020-06-11] MEDS: Baclofen 10 MG TAB PO SCH ×2 (10:06→20:09)
[2020-06-11] MEDS ORDERED: Lisinopril 10 MG TAB ONE (10:32)
[2020-06-11] MEDS: Lisinopril 10 MG TAB PO SCH (10:37)
[2020-06-11] MEDS ORDERED: Dextrose 5% in Water 1,000 ML IV PRN (10:54)
[2020-06-11] MEDS ORDERED: Dextrose 50% Abboject 50 ML SYRINGE SLOW IVP PRN (10:54)
[2020-06-11] MEDS ORDERED: cloNIDine 0.1 MG TAB PO PRN (10:58)
[2020-06-11] MEDS: Morphine 4 MG/ML VIAL SLOW IVP PRN ×3 (12:29→20:43)
[2020-06-11] MEDS ORDERED: FLU VACC QS2020-21(6MOS UP)/PF 60 MCG/0.5 ML SYRINGE IM ONE (13:00)
[2020-06-11] MEDS: Insulin Regular 300 UNITS/3 ML VIAL SC PRN ×2 (13:06→18:40)
[2020-06-11 13:33] LABS: Hemoglobin 11.3 g/dL (14.0-18.0)
[2020-06-11 13:40] VITALS: BMI 36.1
[2020-06-11] MEDS ORDERED: NPH, Human Insulin Isophane 300 UNIT/3 ML VIAL SC SCH ×2 (15:00→21:00)
[2020-06-11] MEDS: glyBURIDE 5 MG TAB PO SCH (16:25)
[2020-06-11] MEDS: metFORMIN 500 MG TAB PO SCH (16:25)
[2020-06-11] MEDS: HYDROcodone/Acetaminophen 10/325 mg Tablet PO PRN (19:07)
[2020-06-11] MEDS ORDERED: Acetaminophen 325 MG TAB PO PRN (19:21)
[2020-06-11] MEDS ORDERED: Calcium Carbonate 500 MG ChewTAB PO PRN (19:21)
--- NOTE | 2020-06-11 19:23 | PDOC.HOSPP ---
- Subjective Encounter Date: 06/11/20 Encounter Time: 09:00 Subjective: Patient seen and examined for medical management. Currently admitted under urology service. Continues to have intractable left flank pain. Some nausea. Denies any chest pain, shortness of breath or palpitations. - Objective Vital Signs & Weight: Vital Signs (12 hours) Temp Pulse Resp BP BP Pulse Ox 06/11/20 16:00 98.7 F 76 16 122/77 98 06/11/20 12:05 143/86 H 06/11/20 11: 98.5 F 89 18 164/92 H 97 06/11/20 10:37 161/77 H Weight Weight 244 lb 15.995 oz I&O: 06/10/20 06/11/20 06/12/20 06:59 06:59 06:59 Intake Total 1700 Output Total 900 Balance 800 Result Diagrams: 06/11/20 13:22 06/11/20 08:26 Additional Labs: Accuchecks 06/11/20 06/11/20 06/11/20 18:39 15:24 12:54 POC Glucose 284 H 297 H 365 H 06/11/20 09:56 POC Glucose 382 H Abnormal Lab Results - Last 48 hrs 06/11/20 03:00: RBC 4.29 L, Hgb 13.2 L, Hct 38.3 L, Monocytes # 0.7 H 06/11/20 03:00: Lipase 325 H 06/11/20 03:27: Ur Specific [place] 1.041 H, Urine Glucose (UA) Greater than 1000 A, Urine Blood 3+ A, Urine RBC Greater than 50 A 06/11/20 08:26: Hgb 11.8 L, Hct 34.0 L 06/11/20 13:22: Hgb 11.3 L, Hct 33.6 L Radiology Reviewed by me: Yes (CT abdomenleft perinephric hematoma) EKG Reviewed by me: Yes (Telemetrysinus rhythm) Hospitalist ROS - Review of Systems Respiratory: denies: cough, dry, shortness of breath, hemoptysis, SOB with excertion, pleuritic pain, sputum, wheezing, other Cardiovascular: denies: chest pain, palpitations, orthopnea, paroxysmal noc. dyspnea, edema, light headedness, other All other systems reviewed; all pertinent +/- noted in HPI/Subj - Medication Medications: Active Medications Generic Name Dose Route Start Last Admin Trade Name Freq PRN Reason Stop Dose Admin Hydrocodone Bitart/Acetaminophen 1 tab 06/11/20 10:56 06/11/20 19:07 Hydrocodone/Acetaminophen 10/325 Mg Tablet PO 1 tab Q4H PRN Administration Mild-Moderate Pain (1-5) Baclofen 20 mg 06/11/20 09:00 06/11/20 10:06 Baclofen 10 Mg Tab PO 20 mg BID SENAIT Administration Glyburide 10 mg 06/11/20 17:00 06/11/20 16:25 Glyburide 5 Mg Tab PO 10 mg BID-WM SENAIT Administration Sodium Chloride 1,000 mls @ 90 mls/hr 06/11/20 08:35 06/11/20 09:31 Normal Saline 0.9% IV 1,000 mls .Q11H7M SENAIT Administration Insulin Human Regular 0 units 06/11/20 10:54 06/11/20 18:40 Insulin Regular 300 Units/3 Ml Vial SC 6 unit .MODERATE SLIDING SC PRN Administration Moderate Correctional Scale Lisinopril 10 mg 06/11/20 09:00 06/11/20 10:37 Lisinopril 10 Mg Tab PO 10 mg QAM SENAIT Administration Metformin HCl 1,000 mg 06/11/20 17:00 06/11/20 16:25 Metformin 500 Mg Tab PO 1,000 mg BID-WM SENAIT Administration Morphine Sulfate 4 mg 06/11/20 10:58 06/11/20 16:26 Morphine 4 Mg/Ml Vial SLOW IVP 06/13/20 14:00 4 mg Q4H PRN Administration Severe Pain (7-10) - Exam General Appearance: ill appearing General - other findings: In significant distress due to left flank pain Neck: supple, no JVD Heart: RRR, no gallops, no rubs, normal peripheral pulses Respiratory: no wheezes, no rales Gastrointestinal: soft, normal bowel sounds, no guarding, no rigidity, tender to palpation (Left flank) Extremities: no cyanosis, no clubbing, no edema Extremities - other findings: No calf tenderness Skin: normal turgor, no lesions Neurological: cranial nerve grossly intact, normal sensation to touch, no weakness Musculoskeletal: normal tone, normal strength, no muscle wasting Psychiatric: normal affect, A&O x 3 Hosp A/P - Plan DVT proph w/SCDs Hypertension Diabetes mellitus type 2 Hyperlipidemia Obesity with a BMI 36.2 Elevated lipase of unclear etiology History of transverse myelitis GERD Plan: Home medications has been restarted. Continue Lipitor, glyburide with Metformin. Continue home dose of lisinopril. Continue PPIs. Add NPH due to uncontrolled blood sugar. Recheck lipase and electrolytes in a.m. Pain control per primary team.
[2020-06-11] MEDS: Polyethylene Glycol 3350 17 GM Packet PO SCH (19:44)
[2020-06-11] MEDS: Gabapentin 300 MG CAP PO SCH (20:09)
[2020-06-11] MEDS: Atorvastatin Calcium 40 MG TAB PO SCH (20:09)
[2020-06-11] MEDS: Senokot S 8.6-50 MG TAB PO SCH (20:09)
[2020-06-11] MEDS ORDERED: Famotidine 20 MG TAB PO SCH (21:00)
[2020-06-12] MEDS: Morphine 4 MG/ML VIAL SLOW IVP PRN ×4 (03:30→23:52)
[2020-06-12] MEDS: Sodium Chloride 0.9% 1,000 ML IV SCH ×3 (04:47→20:22)
[2020-06-12] MEDS ORDERED: ALPRAZolam 0.5 MG TAB PO SCH ×2 (05:00→09:00)
[2020-06-12 06:39] LABS: Hemoglobin 9.9 g/dL (14.0-18.0)
[2020-06-12 06:58] LABS: ALT (SGPT) 19 U/L (8-55); AST (SGOT) 12 U/L (5-34); Albumin 3.4 g/dL (3.5-5.0); Alkaline Phosphatase 67 U/L (40-110); Anion Gap 12 mmol/L (10-20); BUN (Urea Nitrogen) 11 mg/dL (8.4-25.7); Bilirubin, Total 0.8 mg/dL (0.2-1.2); Calc. Creatinine Clearance 162 mL/min (70-130); Calcium 8.3 mg/dL (7.8-10.44); Carbon Dioxide 25 mmol/L (22-29); Chloride 102 mmol/L (98-107); Estimated GFR-MDRD Greater than 90; Globulin 2.3 g/dL (2.4-3.5); Glucose 229 mg/dL (70-105); Lipase 28 U/L (8-78); Potassium 3.8 mmol/L (3.5-5.1); Protein, Total 5.7 g/dL (6.0-8.3); Sodium 135 mmol/L (136-145)
--- NOTE | 2020-06-12 07:37 | PRG ---
DATE OF SERVICE: 06/12/2020 SUBJECTIVE: The patient is doing well. He is resting comfortably. He denies any pain. No fever or chills. No dizziness. No other complaints. OBJECTIVE: VITAL SIGNS: Temperature 98.6, pulse 98, respirations 18, oxygen saturation 97% on 2 L nasal cannula, and blood pressure 114/73. GENERAL: He is alert and oriented x3, in no apparent distress. CARDIOVASCULAR: Regular rhythm. PULMONARY: Breathing unlabored. ABDOMEN: Soft, obese, nontender/nondistended. No masses or organomegaly. No CVA tenderness. EXTREMITIES: Warm and well perfused. No edema. NEUROLOGIC: No focal deficits. LABORATORY DATA: Hemoglobin 9.9, hematocrit 28.9. Sodium 135, potassium 3.8, chloride 102, bicarb 25, BUN 11, and creatinine 0.85. ASSESSMENT: A 50-year-old male with left-sided perinephric hematoma, status post extracorporeal shock wave lithotripsy. PLAN: The patient's hemoglobin has dropped down to 9.9 this morning. He is clinically stable. We will follow additional hemoglobin and hematocrit later today. If this stabilizes, the patient can be discharged home and can follow up with Dr. Mosqueda. If the patient's H and H continues to drop, can consider transfusion as necessary. Job ID: [id number]
[2020-06-12] MEDS ORDERED: NPH, Human Insulin Isophane 300 UNIT/3 ML VIAL SC SCH ×2 (09:00→21:00)
[2020-06-12] MEDS: Senokot S 8.6-50 MG TAB PO SCH ×2 (09:48→20:07)
[2020-06-12] MEDS: glyBURIDE 5 MG TAB PO SCH ×2 (09:48→16:10)
[2020-06-12] MEDS: metFORMIN 500 MG TAB PO SCH ×2 (09:49→16:11)
[2020-06-12] MEDS: Lisinopril 10 MG TAB PO SCH (09:49)
[2020-06-12] MEDS: Baclofen 10 MG TAB PO SCH ×2 (09:49→20:06)
[2020-06-12] MEDS: Polyethylene Glycol 3350 17 GM Packet PO SCH ×2 (09:50→20:06)
[2020-06-12] MEDS: Insulin Regular 300 UNITS/3 ML VIAL SC PRN ×3 (12:06→23:58)
--- NOTE | 2020-06-12 12:52 | PDOC.HOSPP ---
- Subjective Encounter Date: 06/12/20 Encounter Time: 09:30 Subjective: Patient seen and examined for medical management. Pain controlled. Had some anxiety episode this morning requiring benzodiazepines. Denies any chest pain, palpitations, fever, shortness of breath, dysuria or diarrhea - Objective Vital Signs & Weight: Vital Signs (12 hours) Temp Pulse Resp BP BP BP Pulse Ox 06/12/20 09:49 161/77 H 06/12/20 07:53 98.5 F 93 18 98/60 92 L 06/12/20 03:00 98.6 F 98 20 114/73 97 Weight Weight 244 lb 15.995 oz I&O: 06/11/20 06/12/20 06/13/20 06:59 06:59 06:59 Intake Total 1700 Output Total 900 Balance 800 Result Diagrams: 06/12/20 06:21 06/12/20 06:21 Additional Labs: Accuchecks 06/12/20 06/12/20 06/11/20 04:40 00:34 19:25 POC Glucose 198 H 196 H 260 H 06/11/20 06/11/20 06/11/20 18:39 15:24 12:54 POC Glucose 284 H 297 H 365 H Abnormal Lab Results - Last 48 hrs 06/11/20 03:00: RBC 4.29 L, Hgb 13.2 L, Hct 38.3 L, Monocytes # 0.7 H 06/11/20 03:00: Lipase 325 H 06/11/20 03:27: Ur Specific [place] 1.041 H, Urine Glucose (UA) Greater than 1000 A, Urine Blood 3+ A, Urine RBC Greater than 50 A 06/11/20 08:26: Hgb 11.8 L, Hct 34.0 L 06/11/20 13:22: Hgb 11.3 L, Hct 33.6 L 06/12/20 06:21: Hgb 9.9 L, Hct 28.9 L 06/12/20 06:21: Sodium 135 L, Serum Total Protein 5.7 L, Albumin 3.4 L, Globulin 2.3 L Radiology Reviewed by me: Yes (CT abdomen reviewed) Hospitalist ROS - Review of Systems Respiratory: denies: cough, dry, shortness of breath, hemoptysis, SOB with excertion, pleuritic pain, sputum, wheezing, other Cardiovascular: denies: chest pain, palpitations, orthopnea, paroxysmal noc. dyspnea, edema, light headedness, other - Medication Medications: Active Medications Generic Name Dose Route Start Last Admin Trade Name Freq PRN Reason Stop Dose Admin Hydrocodone Bitart/Acetaminophen 1 tab 06/11/20 10:56 06/11/20 19:07 Hydrocodone/Acetaminophen 10/325 Mg Tablet PO 1 tab Q4H PRN Administration Mild-Moderate Pain (1-5) Atorvastatin Calcium 40 mg 06/11/20 21:00 06/11/20 20:09 Atorvastatin Calcium 40 Mg Tab PO 40 mg HS SENAIT Administration Baclofen 20 mg 06/11/20 09:00 06/12/20 09:49 Baclofen 10 Mg Tab PO 20 mg BID SENAIT Administration Gabapentin 300 mg 06/11/20 21:00 06/11/20 20:09 Gabapentin 300 Mg Cap PO 300 mg HS SENAIT Administration Glyburide 10 mg 06/11/20 17:00 06/12/20 09:48 Glyburide 5 Mg Tab PO 10 mg BID-WM SENAIT Administration Sodium Chloride 1,000 mls @ 90 mls/hr 06/11/20 08:35 06/12/20 04:47 Normal Saline 0.9% IV Not Given .Q11H7M SENAIT Insulin Human NPH 10 unit 06/12/20 09:00 06/12/20 09:51 Nph, Human Insulin Isophane 300 Unit/3 Ml Vial SC 10 unit DAILY SENAIT Administration Insulin Human Regular 0 units 06/11/20 10:54 06/12/20 12:06 Insulin Regular 300 Units/3 Ml Vial SC 8 unit .MODERATE SLIDING SC PRN Administration Moderate Correctional Scale Lisinopril 10 mg 06/11/20 09:00 06/12/20 09:49 Lisinopril 10 Mg Tab PO Not Given QAM SENAIT Metformin HCl 1,000 mg 06/11/20 17:00 06/12/20 09:49 Metformin 500 Mg Tab PO 1,000 mg BID-WM SENAIT Administration Morphine Sulfate 4 mg 06/11/20 10:58 06/12/20 09:50 Morphine 4 Mg/Ml Vial SLOW IVP 06/13/20 14:00 4 mg Q4H PRN Administration Severe Pain (7-10) Pantoprazole Sodium 40 mg 06/11/20 21:00 11/25/20 20:09 Pantoprazole 40 Mg Tab PO 40 mg QPM SENAIT Administration Polyethylene Glycol 17 gm 06/11/20 21:00 06/12/20 09:50 Polyethylene Glycol 3350 17 Gm Packet PO 17 gm BID SENAIT Administration Senna/Docusate Sodium 2 tab 06/11/20 21:00 06/12/20 09:48 Senokot S 8.6-50 Mg Tab PO 2 tab BID SENAIT Administration Sertraline HCl 100 mg 06/11/20 21:00 06/11/20 20:09 Sertraline Hcl 100 Mg Tab PO 100 mg HS SENAIT Administration - Exam General Appearance: NAD Heart: RRR, no gallops Respiratory: no wheezes, no ronchi Gastrointestinal: normal bowel sounds, no guarding, no rigidity Gastrointestinal - other findings: Flank tenderness Extremities: no cyanosis, no clubbing Neurological: no new deficit Psychiatric: normal affect, A&O x 3 Hosp A/P - Plan Hypertension Diabetes mellitus type 2uncontrolled Hyperlipidemia Obesity with a BMI 36.2 Elevated lipase of unclear etiology History of transverse myelitis GERD Suspected obstructive sleep apnea Plan: Continue glyburide with Metformin. Change NPH to 10 units twice daily due to uncontrolled blood sugar. Please note that patient was recently on prednisone that could be contributing to hyperglycemia. Continue bowel regimen. Continue lisinopril, Lipitor, baclofen, Zoloft and PPI. Continue close monitoring. Discharge planning per primary team
[2020-06-12 12:57] LABS: Hemoglobin 9.7 g/dL (14.0-18.0)
[2020-06-12] MEDS: HYDROcodone/Acetaminophen 10/325 mg Tablet PO PRN (17:35)
[2020-06-12] MEDS: Gabapentin 300 MG CAP PO SCH (20:07)
[2020-06-12] MEDS: Atorvastatin Calcium 40 MG TAB PO SCH (20:07)
[2020-06-13] MEDS: ALPRAZolam 0.5 MG TAB PO PRN (01:24)
[2020-06-13] MEDS: HYDROcodone/Acetaminophen 10/325 mg Tablet PO PRN ×4 (03:50→23:42)
[2020-06-13] MEDS: Insulin Regular 300 UNITS/3 ML VIAL SC PRN ×4 (05:51→21:14)
[2020-06-13 06:12] LABS: Hemoglobin 9.4 g/dL (14.0-18.0)
[2020-06-13] MEDS: Senokot S 8.6-50 MG TAB PO SCH ×2 (08:48→21:12)
[2020-06-13] MEDS: Polyethylene Glycol 3350 17 GM Packet PO SCH ×2 (08:48→21:15)
[2020-06-13] MEDS: Lisinopril 10 MG TAB PO SCH (08:49)
[2020-06-13] MEDS: metFORMIN 500 MG TAB PO SCH ×2 (08:49→18:04)
[2020-06-13] MEDS: glyBURIDE 5 MG TAB PO SCH ×2 (08:49→18:03)
[2020-06-13] MEDS: Baclofen 10 MG TAB PO SCH ×2 (08:49→21:12)
[2020-06-13] MEDS: Morphine 4 MG/ML VIAL SLOW IVP PRN (08:50)
[2020-06-13] MEDS ORDERED: Insulin Glargine 15 UNITS in Pre-Filled Syringe 1 EACH SC SCH (09:00)
[2020-06-13] MEDS ORDERED: ALPRAZolam 0.5 MG TAB PO SCH (09:00)
--- NOTE | 2020-06-13 14:14 | PDOC.HOSPP ---
- Subjective Encounter Date: 06/13/20 Encounter Time: 10:30 Subjective: Patient seen and examined for medical management. Continues to have significant flank pain requiring IV narcotics. Denies any nausea. Hematuria improving. Denies any chest pain, shortness of breath, fever or chills. - Objective Vital Signs & Weight: Vital Signs (12 hours) Temp Pulse Resp BP BP BP BP 06/13/20 11:35 98.5 F 80 16 127/78 06/13/20 08:49 161/77 H 06/13/20 07:41 98.6 F 92 16 150/82 H 06/13/20 07:33 06/13/20 05:15 98.6 F 93 20 143/82 H 06/13/20 03:40 98.5 F 99 18 166/89 H Pulse Ox 06/13/20 11:35 95 06/13/20 08:49 06/13/20 07:41 94 L 06/13/20 07:33 98 06/13/20 05:15 98 06/13/20 03:40 97 Weight Admit Weight 244 lb Weight 244 lb 15.995 oz I&O: 06/12/20 06/13/20 06/14/20 06:59 06:59 06:59 Intake Total 1700 2480 Output Total 900 2350 900 Balance 800 130 -900 Result Diagrams: 06/13/20 05:36 06/12/20 06:21 Additional Labs: Accuchecks 06/13/20 06/13/20 06/12/20 11:16 03:37 23:40 POC Glucose 289 H 235 H 267 H 06/12/20 16:11 POC Glucose 231 H Hospitalist ROS - Review of Systems Respiratory: denies: cough, dry, shortness of breath, hemoptysis, SOB with exce rtion, pleuritic pain, sputum, wheezing, other Cardiovascular: denies: chest pain, palpitations, orthopnea, paroxysmal noc. dyspnea, edema, light headedness, other - Medication Medications: Active Medications Generic Name Dose Route Start Last Admin Trade Name Freq PRN Reason Stop Dose Admin Hydrocodone Bitart/Acetaminophen 1 tab 06/11/20 10:56 06/13/20 11:46 Hydrocodone/Acetaminophen 10/325 Mg Tablet PO 1 tab Q4H PRN Administration Mild-Moderate Pain (1-5) Alprazolam 0.5 mg 11/27/20 00:39 06/13/20 01:24 Alprazolam 0.5 Mg Tab PO 0.5 mg HS PRN Administration Anxiety/Agitation Atorvastatin Calcium 40 mg 06/11/20 21:00 06/12/20 20:07 Atorvastatin Calcium 40 Mg Tab PO 40 mg HS SENAIT Administration Baclofen 20 mg 06/11/20 09:00 06/13/20 08:49 Baclofen 10 Mg Tab PO 20 mg BID SENAIT Administration Gabapentin 300 mg 06/11/20 21:00 06/12/20 20:07 Gabapentin 300 Mg Cap PO 300 mg HS SENAIT Administration Glyburide 10 mg 06/11/20 17:00 06/13/20 08:49 Glyburide 5 Mg Tab PO 10 mg BID-WM SENAIT Administration Sodium Chloride 1,000 mls @ 90 mls/hr 06/11/20 08:35 06/12/20 20:22 Normal Saline 0.9% IV 1,000 mls .Q11H7M SENAIT Administration Insulin Glargine 15 units/ 0.15 mls @ 0 mls/hr 06/13/20 09:00 06/13/20 08:53 Miscellaneous Medication SC 0.15 mls QAM SENAIT Administration Insulin Human Regular 0 units 06/11/20 10:54 06/13/20 11:47 Insulin Regular 300 Units/3 Ml Vial SC 6 unit .MODERATE SLIDING SC PRN Administration Moderate Correctional Scale Insulin Human Regular 0 units 06/11/20 10:54 06/12/20 23:58 Insulin Regular 300 Units/3 Ml Vial SC 3 unit .BEDTIME SLIDING SC PRN Administration Bedtime Correctional Scale Lisinopril 10 mg 06/11/20 09:00 06/13/20 08:49 Lisinopril 10 Mg Tab PO 10 mg QAM SENAIT Administration Metformin HCl 1,000 mg 06/11/20 17:00 06/13/20 08:49 Metformin 500 Mg Tab PO 1,000 mg BID-WM SENAIT Administration Pantoprazole Sodium 40 mg 06/11/20 21:00 06/12/20 20:08 Pantoprazole 40 Mg Tab PO 40 mg QPM SENAIT Administration Polyethylene Glycol 17 gm 06/11/20 21:00 06/13/20 08:48 Polyethylene Glycol 3350 17 Gm Packet PO 17 gm BID SENAIT Administration Senna/Docusate Sodium 2 tab 06/12/20 21:00 06/13/20 08:48 Senokot S 8.6-50 Mg Tab PO 2 tab BID SENAIT Administration Sertraline HCl 100 mg 06/11/20 21:00 06/12/20 20:06 Sertraline Hcl 100 Mg Tab PO 100 mg HS SENAIT Administration - Exam General - other findings: In mild distress due to pain Heart: RRR, no gallops Respiratory: no wheezes, no ronchi Gastrointestinal: soft, non-distended, normal bowel sounds, tender to palpation (Flanks) Extremities: no cyanosis, no clubbing, no edema Neurological: no new deficit Psychiatric: A&O x 3 Hosp A/P - Plan DVT proph w/SCDs (No Lovenox due to bleeding) Hypertension Diabetes mellitus type 2uncontrolled Hyperlipidemia Obesity with a BMI 36.2 Elevated lipase of unclear etiology History of transverse myelitis GERD Suspected obstructive sleep apnea Plan: Change NPH to Lantus 15 units daily. Continue sliding scale with glyburide/Metformin. Continue bowel regimenpatient has not had a BM this admission. Continue IV fluids. Still in significant pain requiring IV morphine. Discharge disposition per primary service
[2020-06-13 14:50] LABS: Hemoglobin 9.6 g/dL (14.0-18.0); Platelet Count 158 thou/uL (130-400)
[2020-06-13 15:02] LABS: Hemoglobin A1c 12.1 % (4.0-6.0)
[2020-06-13] MEDS: Morphine 2 MG/ML VIAL SLOW IVP PRN ×2 (15:11→20:47)
[2020-06-13] MEDS: Sodium Chloride 0.9% 1,000 ML IV SCH ×2 (16:19→20:48)
[2020-06-13] MEDS ORDERED: Insulin Glargine 10 UNITS in Pre-Filled Syringe 1 EACH SC SCH (21:00)
[2020-06-13] MEDS: Gabapentin 300 MG CAP PO SCH (21:12)
[2020-06-13] MEDS: Atorvastatin Calcium 40 MG TAB PO SCH (21:12)
--- NOTE | 2020-06-13 21:13 | PRG ---
DATE OF SERVICE: 06/13/2020 SUBJECTIVE: The patient is overall doing well. He continues to report intermittent pain. He elected not to go home yesterday secondary to pain. He states the pain is worse when he moves and when he breathes. It concentrates around his left flank, but moves across to the center of his back into his left lower quadrant. No other complaints. OBJECTIVE: VITAL SIGNS: Temperature 98.5, pulse 86, respirations 18, oxygen saturation 97% on room air, blood pressure 162/89. GENERAL: He is alert and oriented x3, in no apparent distress. CARDIOVASCULAR: Regular rhythm. PULMONARY: Breathing unlabored. ABDOMEN: Soft, nontender/nondistended. No masses or organomegaly. No suprapubic tenderness to palpation. No CVA tenderness. EXTREMITIES: Warm and well perfused. No edema. NEUROLOGIC: No focal deficits. LABORATORY DATA: Hemoglobin 9.6, hematocrit 28.3 at 1442 hours. Previous hemoglobin at 5:36 a.m. was 9.4 and hematocrit 27.5. ASSESSMENT: A 50-year-old male with left subcapsular hematoma, status post extracorporeal shock wave lithotripsy. PLAN: The patient continues to have some pain. He is hemodynamically stable now. His hemoglobin has normalized. Stop serial hemoglobin and hematocrits. The patient is concerned about pain control. Explained we could wean IV narcotics and transition to p.o. pain medication and plan for discharge tomorrow morning. He agrees with this plan. Job ID: [id number]
[2020-06-13] MEDS: Milk Of Magnesia 30 ML UDCUP PO SCH (21:16)
[2020-06-14] MEDS ORDERED: Morphine 2 MG/ML VIAL SLOW IVP SCH (00:30)
[2020-06-14] MEDS: ALPRAZolam 0.5 MG TAB PO PRN ×2 (01:07→21:13)
[2020-06-14 06:22] LABS: Hemoglobin 9.6 g/dL (14.0-18.0)
[2020-06-14] MEDS: Insulin Regular 300 UNITS/3 ML VIAL SC PRN ×4 (06:37→21:12)
[2020-06-14] MEDS: HYDROcodone/Acetaminophen 10/325 mg Tablet PO PRN ×3 (06:40→23:35)
[2020-06-14] MEDS ORDERED: Insulin Glargine 20 UNITS in Pre-Filled Syringe 1 EACH SC SCH (09:00)
[2020-06-14] MEDS: Polyethylene Glycol 3350 17 GM Packet PO SCH ×2 (09:22→21:14)
[2020-06-14] MEDS: Senokot S 8.6-50 MG TAB PO SCH ×2 (09:23→21:14)
[2020-06-14] MEDS: glyBURIDE 5 MG TAB PO SCH ×2 (09:23→16:50)
[2020-06-14] MEDS: metFORMIN 500 MG TAB PO SCH ×2 (09:23→16:50)
[2020-06-14] MEDS: Lisinopril 10 MG TAB PO SCH (09:23)
[2020-06-14] MEDS: Baclofen 10 MG TAB PO SCH ×2 (09:24→21:15)
[2020-06-14] MEDS: Sodium Chloride 0.9% 1,000 ML IV SCH ×3 (09:24→23:34)
[2020-06-14] MEDS: Morphine 2 MG/ML VIAL SLOW IVP PRN ×2 (09:28→13:06)
--- NOTE | 2020-06-14 12:00 | PDOC.HOSPP ---
- Subjective Encounter Date: 06/14/20 Encounter Time: 10:30 Subjective: Patient seen and examined for medical management. Continues to have significant pain moderate to severe in intensity. Denies any fever or chills. No nausea, vomiting or dysuria reported. - Objective Vital Signs & Weight: Vital Signs (12 hours) Temp Pulse Resp BP BP BP BP 06/14/20 11:37 99.2 F 91 20 165/89 H 06/14/20 09:23 146/73 H 06/14/20 08:00 06/14/20 07:38 98.5 F 93 20 146/73 H 06/14/20 04:35 99.1 F 97 20 150/82 H 06/14/20 00:26 138/80 06/13/20 23:53 99.5 F 97 20 175/102 H 06/13/20 23:49 97 175/102 H Pulse Ox 06/14/20 11:37 96 06/14/20 09:23 06/14/20 08:00 96 06/14/20 07:38 96 06/14/20 04:35 96 06/14/20 00:26 06/13/20 23:53 98 06/13/20 23:49 Weight Admit Weight 244 lb Weight 244 lb 15.995 oz I&O: 06/13/20 06/14/20 06/15/20 06:59 06:59 06:59 Intake Total 2480 1730 1580 Output Total 2350 900 1050 Balance 130 830 530 Result Diagrams: 06/14/20 05:39 06/12/20 06:21 Additional Labs: Accuchecks 06/14/20 06/14/20 06/14/20 11:20 04:09 01:11 POC Glucose 214 H 248 H 249 H 06/13/20 06/13/20 19:03 15:54 POC Glucose 255 H 240 H Hospitalist ROS - Review of Systems Respiratory: denies: cough, dry, shortness of breath, hemoptysis, SOB with excertion, pleuritic pain, sputum, wheezing, other Cardiovascular: denies: chest pain, palpitations, orthopnea, paroxysmal noc. dyspnea, edema, light headedness, other - Medication Medications: Active Medications Generic Name Dose Route Start Last Admin Trade Name Freq PRN Reason Stop Dose Admin Hydrocodone Bitart/Acetaminophen 1 tab 06/11/20 10:56 06/14/20 06:40 Hydrocodone/Acetaminophen 10/325 Mg Tablet PO 1 tab Q4H PRN Administration Mild-Moderate Pain (1-5) Alprazolam 0.5 mg 06/13/20 00:39 06/14/20 01:07 Alprazolam 0.5 Mg Tab PO 0.5 mg HS PRN Administration Anxiety/Agitation Atorvastatin Calcium 40 mg 06/11/20 21:00 06/13/20 21:12 Atorvastatin Calcium 40 Mg Tab PO 40 mg HS SENAIT Administration Baclofen 20 mg 06/11/20 09:00 06/14/20 09:24 Baclofen 10 Mg Tab PO 20 mg BID SENAIT Administration Gabapentin 300 mg 06/11/20 21:00 06/13/20 21:12 Gabapentin 300 Mg Cap PO 300 mg HS SENAIT Administration Glyburide 10 mg 06/11/20 17:00 06/14/20 09:23 Glyburide 5 Mg Tab PO 10 mg BID-WM SENAIT Administration Hydralazine HCl 20 mg 06/11/20 08:35 06/13/20 23:49 Hydralazine 20 Mg/Ml Vial SLOW IVP 20 mg Q4H PRN Administration SBP greater than 160/100 Sodium Chloride 1,000 mls @ 90 mls/hr 06/11/20 08:35 06/14/20 09:24 Normal Saline 0.9% IV 1,000 mls .Q11H7M SENAIT Administration Insulin Human Regular 0 units 06/11/20 10:54 06/14/20 06:37 Insulin Regular 300 Units/3 Ml Vial SC 4 unit .MODERATE SLIDING SC PRN Administration Moderate Correctional Scale Insulin Human Regular 0 units 06/11/20 10:54 06/13/20 21:14 Insulin Regular 300 Units/3 Ml Vial SC 3 unit .BEDTIME SLIDING SC PRN Administration Bedtime Correctional Scale Lisinopril 10 mg 06/11/20 09:00 06/14/20 09:23 Lisinopril 10 Mg Tab PO 10 mg QAM SENAIT Administration Magnesium Hydroxide 30 ml 06/13/20 21:00 06/13/20 21:16 Milk Of Magnesia 30 Ml Udcup PO 30 ml HS SENAIT Administration Metformin HCl 1,000 mg 06/11/20 17:00 06/14/20 09:23 Metformin 500 Mg Tab PO 1,000 mg BID-WM SENAIT Administration Morphine Sulfate 2 mg 06/13/20 14:16 06/14/20 09:28 Morphine 2 Mg/Ml Vial SLOW IVP 06/15/20 14:17 2 mg Q4H PRN Administration Severe Pain (7-10) Pantoprazole Sodium 40 mg 06/11/20 21:00 06/13/20 21:12 Pantoprazole 40 Mg Tab PO 40 mg QPM SENAIT Administration Polyethylene Glycol 17 gm 06/11/20 21:00 06/14/20 09:22 Polyethylene Glycol 3350 17 Gm Packet PO Not Given BID SENAIT Senna/Docusate Sodium 2 tab 06/12/20 21:00 06/14/20 09:23 Senokot S 8.6-50 Mg Tab PO Not Given BID SENAIT Sertraline HCl 100 mg 06/11/20 21:00 06/13/20 21:12 Sertraline Hcl 100 Mg Tab PO 100 mg HS SENAIT Administration - Exam General - other findings: In distress due to pain Heart: RRR, no gallops Respiratory: no wheezes, no ronchi Gastrointestinal: soft, no guarding, no rigidity, tender to palpation (flank) Extremities: no cyanosis Neurological: no new deficit Hosp A/P - Plan DVT proph w/SCDs Hypertension Diabetes mellitus type 2uncontrolled Hyperlipidemia Obesity with a BMI 36.2 Elevated lipase of unclear etiologyresolved History of transverse myelitis GERD Suspected obstructive sleep apnea Plan: Blood sugar still elevated. Will increase Lantus to 25 units daily. Continue glyburide with Metformin. Pain control per primary team. Hemoglobin stable. Outpatient sleep study recommended. Discharge disposition per primary service.
--- NOTE | 2020-06-14 15:49 | PRG ---
DATE OF SERVICE: 06/14/2020 SUBJECTIVE: The patient continues to report intermittent left-sided flank pain radiating to his left lower quadrant. He states he had a bad night. The pain was severe and caused inability to sleep. He denies any nausea or vomiting. No fever or chills. No gross hematuria. OBJECTIVE: VITAL SIGNS: Temperature 99.2, pulse 91, respirations 18, oxygen saturation 96% on room air, and blood pressure 165/89. LABORATORY DATA: Hemoglobin 9.6 and hematocrit 28.6. ASSESSMENT: A 50-year-old male with left subcapsular hematoma, status post extracorporeal shockwave lithotripsy. The patient remains hemodynamically stable. He continues to be concerned about pain control. He did require multiple doses of IV narcotics overnight. I explained to the patient that we could send him home on oral narcotics. At this point, the patient is not comfortable with that. We will attempt to adjust his oral narcotic dose to maximum amounts tonight and see how he does overnight on orals only. Avoid IV analgesics. Re-evaluate for discharge tomorrow morning. Job ID: [id number]
[2020-06-14] MEDS ORDERED: Insulin Glargine 10 UNITS in Pre-Filled Syringe 1 EACH SC SCH (21:00)
[2020-06-14] MEDS: Gabapentin 300 MG CAP PO SCH (21:15)
[2020-06-14] MEDS: Milk Of Magnesia 30 ML UDCUP PO SCH (21:15)
[2020-06-14] MEDS: Atorvastatin Calcium 40 MG TAB PO SCH (21:16)
[2020-06-15] MEDS: HYDROcodone/Acetaminophen 10/325 mg Tablet PO PRN ×3 (03:14→13:44)
[2020-06-15] MEDS: Insulin Regular 300 UNITS/3 ML VIAL SC PRN ×2 (05:32→11:31)
[2020-06-15] MEDS: Sodium Chloride 0.9% 1,000 ML IV SCH (07:40)
[2020-06-15] MEDS: glyBURIDE 5 MG TAB PO SCH (07:40)
[2020-06-15] MEDS: metFORMIN 500 MG TAB PO SCH (07:40)
[2020-06-15] MEDS: Senokot S 8.6-50 MG TAB PO SCH (07:40)
[2020-06-15] MEDS: Lisinopril 10 MG TAB PO SCH (07:41)
[2020-06-15] MEDS: Baclofen 10 MG TAB PO SCH (07:41)
[2020-06-15] MEDS: Polyethylene Glycol 3350 17 GM Packet PO SCH (07:43)
[2020-06-15] MEDS ORDERED: Insulin Glargine 25 UNITS in Pre-Filled Syringe 1 EACH SC SCH (09:00)
--- NOTE | 2020-06-15 10:28 | RAD ---
PORTABLE CHEST 1 VIEW: Date: 06/15/2020 Time: 1021 hours HISTORY: Shortness of breath and cough. FINDINGS/IMPRESSION: Comparison made with exam of 12/27/2018. The heart size is normal. There is consolidation at the lateral aspect of the left lung base with pro bable accompanying effusion. No pneumothoraces are seen. Findings are suspicious for pneumonia. POS: [facility]
--- NOTE | 2020-06-15 13:03 | PDOC.HOSPP ---
- Subjective Encounter Date: 06/15/20 Encounter Time: 12:00 Subjective: Patient seen and examined for medical management. Started to develop cough with small amount of greenish phlegm. Denies any shortness of breath, chest pain, fever or chills. - Objective Vital Signs & Weight: Vital Signs (12 hours) Temp Pulse Resp BP BP Pulse Ox 06/15/20 07:25 98.1 F 83 20 148/77 H 98 06/15/20 03:15 98.5 F 88 115/69 97 Weight Admit Weight 244 lb Weight 244 lb 15.995 oz I&O: 06/14/20 06/15/20 06/16/20 06:59 06:59 06:59 Intake Total 1730 4460 Output Total 900 1050 Balance 830 3410 Result Diagrams: 06/14/20 05:39 06/12/20 06:21 Additional Labs: Accuchecks 06/15/20 06/15/20 06/15/20 11:16 04:57 00:56 POC Glucose 239 H 248 H 220 H 06/14/20 06/14/20 19:16 16:19 POC Glucose 244 H 204 H Radiology Reviewed by me: Yes (Chest x-ray? Left lower lobe infiltrate) Hospitalist ROS - Review of Systems Cardiovascular: denies: chest pain, palpitations, orthopnea, paroxysmal noc. dyspnea, edema, light headedness, other Gastrointestinal: denies: nausea, vomiting, abdominal pain, diarrhea, constipation, melena, hematochezia, other - Medication Medications: Active Medications Generic Name Dose Route Start Last Admin Trade Name Freq PRN Reason Stop Dose Admin Hydrocodone Bitart/Acetaminophen 1 tab 06/11/20 10:56 06/15/20 07:41 Hydrocodone/Acetaminophen 10/325 Mg Tablet PO 1 tab Q4H PRN Administration Mild-Moderate Pain (1-5) Alprazolam 0.5 mg 06/13/20 00:39 06/14/20 21:13 Alprazolam 0.5 Mg Tab PO 0.5 mg HS PRN Administration Anxiety/Agitation Atorvastatin Calcium 40 mg 06/11/20 21:00 06/14/20 21:16 Atorvastatin Calcium 40 Mg Tab PO 40 mg HS SENAIT Administration Baclofen 20 mg 06/11/20 09:00 06/15/20 07:41 Baclofen 10 Mg Tab PO 20 mg BID SENAIT Administration Gabapentin 300 mg 06/11/20 21:00 06/14/20 21:15 Gabapentin 300 Mg Cap PO 300 mg HS SENAIT Administration Glyburide 10 mg 06/11/20 17:00 06/15/20 07:40 Glyburide 5 Mg Tab PO 10 mg BID-WM SNEAIT Administration Hydralazine HCl 20 mg 06/11/20 08:35 06/13/20 23:49 Hydralazine 20 Mg/Ml Vial SLOW IVP 20 mg Q4H PRN Administration SBP greater than 160/100 Insulin Glargine 25 units/ 0.25 mls @ 0 mls/hr 06/15/20 09:00 06/15/20 09:11 Miscellaneous Medication SC 0.25 mls QAM SENAIT Administration Insulin Human Regular 0 units 06/11/20 10:54 06/15/20 11:31 Insulin Regular 300 Units/3 Ml Vial SC 4 unit .MODERATE SLIDING SC PRN Administration Moderate Correctional Scale Insulin Human Regular 0 units 06/11/20 10:54 06/14/20 21:12 Insulin Regular 300 Units/3 Ml Vial SC 2 unit .BEDTIME SLIDING SC PRN Administration Bedtime Correctional Scale Lisinopril 10 mg 06/11/20 09:00 06/15/20 07:41 Lisinopril 10 Mg Tab PO 10 mg QAM SENAIT Administration Magnesium Hydroxide 30 ml 06/13/20 21:00 06/14/20 21:15 Milk Of Magnesia 30 Ml Udcup PO 30 ml HS SENAIT Administration Metformin HCl 1,000 mg 06/11/20 17:00 06/15/20 07:40 Metformin 500 Mg Tab PO 1,000 mg BID-WM SENAIT Administration Pantoprazole Sodium 40 mg 06/11/20 21:00 06/14/20 21:15 Pantoprazole 40 Mg Tab PO 40 mg QPM SENAIT Administration Polyethylene Glycol 17 gm 06/11/20 21:00 06/15/20 07:43 Polyethylene Glycol 3350 17 Gm Packet PO Not Given BID SENAIT Senna/Docusate Sodium 2 tab 06/12/20 21:00 06/15/20 07:40 Senokot S 8.6-50 Mg Tab PO 2 tab BID SENAIT Administration Sertraline HCl 100 mg 06/11/20 21:00 06/14/20 21:14 Sertraline Hcl 100 Mg Tab PO 100 mg HS SENAIT Administration - Exam General Appearance: NAD Neck: supple, no JVD Heart: RRR, no gallops Respiratory: no wheezes, rhonchi (Left base) Respiratory - other findings: Diminished air entry at left base Gastrointestinal: soft, non-distended, normal bowel sounds Extremities: no cyanosis Neurological: no new deficit Psychiatric: normal affect, A&O x 3 Hosp A/P - Plan DVT proph w/SCDs Suspected left lower lobe pneumonia ?Gram-negative versus atelectasis. Hypertension Diabetes mellitus type 2uncontrolled Hyperlipidemia Obesity with a BMI 36.2 Elevated lipase of unclear etiologyresolved History of transverse myelitis GERD Suspected obstructive sleep apnea Plan: Will start oral Levaquin. Continue Lantus on a daily basis. Continue sliding scale. We will continue glyburide with Metformin. Patient was advised to monitor blood sugars on the daily basis. We will also send a prescription for Lantus in case patient gets discharged by primary team. DC IV morphine per urology recommendation. Sleep study as outpatient. Repeat chest x-ray after 4 weeks. Patient was advised to continue incentive spirometry.
[2020-06-15 14:03] VITALS: BP 146/71; TEMP 98.8
== END 2020-06-15 16:21 | disposition home or self-care (01) | DRG 919 ==
LOC: ERS 02:38 → OBSVTOIN 04:33 → INTOOBSV 04:33 → ERHOLD 04:33 → T4-A 11:21
PROVIDERS: ADMIT Urology; ATTEND Urology
DX: N99.840 Postprocedural hematoma of a genitourinary system organ or structure following a genitourinary system procedure (principal); J18.9 Pneumonia, unspecified organism; Z20.828 Contact with and (suspected) exposure to other viral communicable diseases; E78.5 Hyperlipidemia, unspecified; E78.00 Pure hypercholesterolemia, unspecified; E11.65 Type 2 diabetes mellitus with hyperglycemia; I10 Essential (primary) hypertension; F41.9 Anxiety disorder, unspecified; K21.9 Gastro-esophageal reflux disease without esophagitis; E66.9 Obesity, unspecified; F17.210 Nicotine dependence, cigarettes, uncomplicated; N40.1 Benign prostatic hyperplasia with lower urinary tract symptoms; N20.0 Calculus of kidney; Y83.8 Other surgical procedures as the cause of abnormal reaction of the patient, or of later complication, without mention of misadventure at the time of the procedure; G47.33 Obstructive sleep apnea (adult) (pediatric); Z88.1 Allergy status to other antibiotic agents; Z88.8 Allergy status to other drugs, medicaments and biological substances; Z79.84 Long term (current) use of oral hypoglycemic drugs; Z79.899 Other long term (current) drug therapy; Z68.36 Body mass index [BMI] 36.0-36.9, adult
CPT/HCPCS: 36415; 36416; 71046; 74176; 80053; 81003; 81015; 82150; 83036; 83690; 85014; 85018; 85025; 90471; 90662; 90732; 93005; 96374; 96375; 96376; G0008; G0009; J0360; J1815; J1885; J1956; J2250; J2270; J2405; J2704; J3010; J3490; U0002

== ENCOUNTER 2020-06-22 04:16 | Inpatient (IN) | payer OTHER, SELFPAY ==
[2020-06-22 05:02] LABS: #Eosinphils 0.1 thou/uL (0.0-0.7); #Lymphocytes 2.1 thou/uL (1.20-3.40); #Monocytes 0.7 thou/uL (0.11-0.59); #Neutrophils 4.5 thou/uL (1.40-6.50); %Basophils 0.4 % (0.0-1.0); %Eosinophils 1.4 % (0.0-10.0); %Lymphocytes 27.8 % (21.0-51.0); %Monocytes 9.6 % (0.0-10.0); %Neutrophils 60.8 % (42.0-75.0); Hemoglobin 12.5 g/dL (14.0-18.0); Mean Corpuscular HGB CONC 33.7 g/dL (32.0-36.0); Mean Corpuscular Volume 88.7 fL (78.0-98.0); Mean Platelet Volume 9.5 fL (7.4-10.4); Platelet Count 428 thou/uL (130-400); RBC Distribution Width 12.9 % (11.5-14.5); Red Blood Cell (RBC) Count 4.16 mill/uL (4.70-6.10); White Blood Cell (WBC) Count 7.5 thou/uL (4.8-10.8)
[2020-06-22] MEDS ORDERED: Aspirin Chewable 81 MG TAB ONE (05:03)
[2020-06-22 07:10] LABS: Albumin 3.8 g/dL (3.5-5.0)
[2020-06-22 07:11] LABS: Chloride 103 mmol/L (98-107); Potassium 3.8 mmol/L (3.5-5.1); Sodium 137 mmol/L (136-145)
[2020-06-22 07:12] LABS: Calcium 9.3 mg/dL (7.8-10.44); Glucose 221 mg/dL (70-105)
[2020-06-22 07:13] LABS: Globulin 3.6 g/dL (2.4-3.5); Protein, Total 7.4 g/dL (6.0-8.3)
[2020-06-22 07:14] LABS: Anion Gap 15 mmol/L (10-20); Bilirubin, Total 0.6 mg/dL (0.2-1.2); Carbon Dioxide 23 mmol/L (22-29)
[2020-06-22 07:15] LABS: Alkaline Phosphatase 114 U/L (40-110)
[2020-06-22 07:16] LABS: Calc. Creatinine Clearance 0 mL/min (70-130)
[2020-06-22 07:17] LABS: BUN (Urea Nitrogen) 12 mg/dL (8.4-25.7)
[2020-06-22 07:18] LABS: ALT (SGPT) 21 U/L (8-55); AST (SGOT) 18 U/L (5-34)
[2020-06-22 08:13] LABS: CKMB 1.9 ng/mL (0-6.6)
[2020-06-22] MEDS ORDERED: Nitroglycerin 0.4 MG TAB 1 EACH ONE (08:31)
--- NOTE | 2020-06-22 10:38 | RAD ---
PORTABLE CHEST: HISTORY: Chest pain. FINDINGS: Lungs appear clear. No infiltrate or vascular congestion. Heart and mediastinum unremarkable. IMPRESSION: No acute process. POS: AGW
[2020-06-22 11:26] LABS: Troponin I 0.038 ng/mL (< 0.028)
[2020-06-22] MEDS ORDERED: Nitroglycerin 0.4 MG TAB (25 Tab Bottle) SL PRN (13:08)
[2020-06-22] MEDS ORDERED: Dextrose 5% in Water 1,000 ML IV PRN (13:08)
[2020-06-22] MEDS ORDERED: HumaLOG 300 UNITS/3 ML VIAL SC PRN (13:08)
[2020-06-22] MEDS ORDERED: Dextrose 50% Abboject 50 ML SYRINGE SLOW IVP PRN (13:08)
--- NOTE | 2020-06-22 13:39 | PDOC.HHP ---
Hospitalist HPI - History of Present Illness History of Present Illness: ADMISSION DATE: 06/22/2020 TIME OF ASSESSMENT: 1145 PRIMARY CARE PHYSICIAN: Benito at [facility] in [place] CHIEF COMPLAINT: Palpitations and chest pain HPI: Patient is a 50-year-old male with past medical history significant for hypertension, and diabetes type 2. He presents to the ER today after having chest pain and palpitations last night. Most of the history is obtained from the as the patient is very tired at this time. He states he was laying down to go to sleep this morning around 3 AM when he could feel his pulse in his temples. He stated that it felt a little irregular and he also had chest pressure at this time. Denies shortness of breath, nausea, diaphoresis. The states that when the patient had a lithotripsy recently the patient went into atrial fibrillation and cardiology was consulted. The rest of his hospital stay he was in sinus rhythm so no new medications were started. They told him to follow-up if he felt irregular again. Patient does have a history of sleep apnea but does not use a CPAP as he is claustrophobic. His last sleep study was 8 years ago. His states that he has not been sleeping for the past nights and has been awake almost every night at almost 5 AM. ED COURSE: Vital Signs: Blood pressure 113/59, pulse 80, respiratory rate 19, temp 98.7, 97% room air In the ER they completed a chest x-ray, EKG and lab work. He was given 1 sublingual nitro and aspirin 324 mg. PAST MEDICAL HISTORY: Hypertension, diabetes type 2, hypercholesterol, transverse myelitis, sleep apnea PAST SURGICAL HISTORY: Shoulder surgery, circumcision, deviated septum repair SOCIAL HISTORY: Patient lives at home with his and children. Denies alcohol, drug, tobacco use FAMILY HISTORY: Mother and father both had diabetes and heart issues ALLERGIES: Rocephin and Steglarto CURRENT MEDICATIONS: Sertraline 100 mg at night Glyburide/metformin 5/500 mg 2 tablets twice a day Baclofen 2 tablets twice a day Atorvastatin 40 mg at night Neurontin 300 mg 2 times a day [place]-3 acid Lisinopril 10 mg daily Levaquin 500 mg daily Protonix 40 mg daily Bentyl as needed Tramadol as needed Hospitalist ROS - Review of Systems Cardiovascular: reports: chest pain, palpitations All other systems reviewed; all pertinent +/- noted in HPI/Subj - Exam General Appearance: NAD General - other findings: sleeping on and off during assessment- sleep apnea present Eye: PERRL ENT: normocephalic atraumatic Neck: supple Heart: RRR, no murmur, no gallops, no rubs, normal peripheral pulses Respiratory: CTAB, no wheezes, no rales, no ronchi, normal chest expansion Gastrointestinal: soft, non-tender, non-distended, normal bowel sounds, no palpable masses Extremities: no edema Neurological: no focal deficits Musculoskeletal: normal tone, no muscle wasting Psychiatric: normal affect, normal behavior, A&O x 3 Hospitalist Results - Labs Result Diagrams: 06/22/20 04:40 06/22/20 06:50 Lab results: WBC 7.5 thou/uL (4.8-10.8) 06/22/20 04:40 Hgb 12.5 g/dL (14.0-18.0) L 06/22/20 04:40 Hct 36.9 % (42.0-52.0) L 06/22/20 04:40 MCV 88.7 fL (78.0-98.0) 06/22/20 04:40 Plt Count 428 thou/uL (130-400) H 06/22/20 04:40 Neutrophils % 60.8 % (42.0-75.0) 06/22/20 04:40 Sodium 137 mmol/L (136-145) 06/22/20 06:50 Potassium 3.8 mmol/L (3.5-5.1) 06/22/20 06:50 Chloride 103 mmol/L (98-107) 06/22/20 06:50 Carbon Dioxide 23 mmol/L (22-29) 06/22/20 06:50 BUN 12 mg/dL (8.4-25.7) 06/22/20 06:50 Creatinine 0.98 mg/dL (0.7-1.3) 06/22/20 06:50 Glucose 221 mg/dL (70-105) H 06/22/20 06:50 Calcium 9.3 mg/dL (7.8-10.44) 06/22/20 06:50 Total Bilirubin 0.6 mg/dL (0.2-1.2) 06/22/20 06:50 AST 18 U/L (5-34) 06/22/20 06:50 ALT 21 U/L (8-55) 06/22/20 06:50 Alkaline Phosphatase 114 U/L (40-110) H 06/22/20 06:50 CK-MB (CK-2) 1.9 ng/mL (0-6.6) 06/22/20 06:50 Troponin I 0.038 ng/mL (< 0.028) H 06/22/20 10:53 Serum Total Protein 7.4 g/dL (6.0-8.3) 06/22/20 06:50 Albumin 3.8 g/dL (3.5-5.0) 06/22/20 06:50 - EKG Interpretation EKG: SR 95 bpm - Radiology Interpretation Chest x-ray Status: image reviewed by me, report reviewed by me Additional Comment: No acute process. Hospitalist H&P A/P - Plan Plan: Chest pain with palpitations Continue to trend troponins Stress test if troponins unremarkable Monitor on telemetry, monitor for any arrhythmias Palpitations lasted only a few minutes, sinus rhythm since arrival to ER Sleep apnea Replace O2 if needed at night while sleeping Showed possibly need to follow-up outpatient and have a sleep study repeated as it has been 8 years since his previous one Diabetes mellitus type 2 Monitor Accu-Cheks AC at bedtime Mild sliding scale insulin Restart home medications once reconciled Hypertension Restart home medications once reconciled Vital signs every 4 hours CODE STATUS: Full Surrogate decision-maker is his , Jocelyn
[2020-06-22 17:56] VITALS: BMI 35.9
[2020-06-22] MEDS: HumaLOG 300 UNITS/3 ML VIAL SC PRN (18:18)
[2020-06-22] MEDS ORDERED: traMADol HCl 50 MG TAB PO PRN (20:22)
[2020-06-22] MEDS ORDERED: ALPRAZolam 0.5 MG TAB PO SCH (20:30)
[2020-06-22] MEDS ORDERED: Atorvastatin Calcium 40 MG TAB PO SCH (21:00)
[2020-06-22] MEDS: Gabapentin 300 MG CAP PO SCH (21:11)
[2020-06-22 22:34] LABS: SARS-CoV-2 MS2 Positive; SARS-CoV-2 N Gene Negative; SARS-CoV-2 S Gene Negative; SARS-CoV-2 by NAA Not Detected (NotDetected); SARS-CoV-2 orf1ab Negative
[2020-06-23 04:50] LABS: Cardiac Risk 4.8 (Less than 4.5)
[2020-06-23] MEDS ORDERED: Lisinopril 10 MG TAB PO SCH (09:00)
[2020-06-23] MEDS ORDERED: Aspirin Chewable 81 MG TAB PO SCH (09:00)
[2020-06-23 09:46] LABS: CKMB 1.3 ng/mL (0-6.6)
[2020-06-23] MEDS: Gabapentin 300 MG CAP PO SCH (11:33)
--- NOTE | 2020-06-23 11:36 | NM ---
EXAM: CARDIAC SPECT HISTORY: Chest pain, atrial fibrillation, hypertension, dyslipidemia, diabetes mellitus TECHNIQUE: A myocardial perfusion scan was performed using the single isotope 1 day protocol with rajan hnetium 99m sestamibi. [10 mCi] was injected intravenously for the rest exam followed by 30 mCi for the stress study. Pharmacologic stress with adenosine was monitored and interpreted by the physician's home care assistant. FINDINGS: Homogeneous tracer distribution is seen in the myocardial segments on stress and rest image s without fixed or reversible defects. Gated SPECT LVEF: 54% Wall motion exam: Normal IMPRESSION: Normal myocardial perfusion scan
--- NOTE | 2020-06-23 11:38 | RAD ---
KUB: DATE: 06/23/2020 HISTORY: Left flank pain. FINDINGS: Bowel gas pattern is nonobstructed. Bilateral renal calculi are demonstrated. I do not see any defini tive ureteral calculi. There is vague increased density associated with the left kidney. On the previ ous CT examination, there was perinephric hematoma. This would represent residual perinephric hematom a. IMPRESSION: Bilateral renal calculi. Left renal outline is enlarged with increased density along the mid to lower pole region consistent with perinephric hematoma that was noted on previous CT. POS: ARYA
[2020-06-23 12:10] VITALS: BP 139/73; TEMP 98.8
[2020-06-23] MEDS: HumaLOG 300 UNITS/3 ML VIAL SC PRN (12:26)
--- NOTE | 2020-06-23 13:39 | PDOC.DS.DS ---
Provider - Provider Date of Admission: 06/22/20 08:29 Date of Discharge: 06/23/20 Admitting Provider: Meghan Rushing MD Primary Care Physician: RUDY BRITTON MD Course - Hospital Course Hospital Course: HISTORY OF PRESENT ILLNESS ON ADMISSION: Patient is a 50-year-old male with past medical history significant for hypertension, and diabetes type 2. He presents to the ER today after having chest pain and palpitations last night. Most of the history is obtained from the as the patient is very tired at this time. He states he was laying down to go to sleep this morning around 3 AM when he could feel his pulse in his temples. He stated that it felt a little irregular and he also had chest pressure at this time. Denies shortness of breath, nausea, diaphoresis. The states that when the patient had a lithotripsy recently the patient went into atrial fibrillation and cardiology was consulted. The rest of his hospital stay he was in sinus rhythm so no new medications were started. They told him to follow-up if he felt irregular again. Patient does have a history of sleep apnea but does not use a CPAP as he is claustrophobic. His last sleep study was 8 years ago. His states that he has not been sleeping for the past nights and has been awake almost every night at almost 5 AM. ED COURSE: Vital Signs: Blood pressure 113/59, pulse 80, respiratory rate 19, temp 98.7, 97% room air In the ER they completed a chest x-ray, EKG and lab work. He was given 1 sublingual nitro and aspirin 324 mg. BRIEF HOSPITAL COURSE: Mr. Lama is a 50-year-old male with a past medical history of hypertension, type 2 diabetes, hyperlipidemia, multiple sclerosis, sleep apnea who initially presented to the emergency room on 06/22/2020 for evaluation of chest pain. Initial EKG showed normal sinus rhythm. Chest x-ray with no acute abnormalities. Initial troponin 0.0 2. Patient received 325 mg of aspirin and sublingual nitro. Patient was admitted to hospitalist service for observation. Patient's troponins were trended and were low but detectable. Patient underwent cardiac stress test which showed no areas of reversible ischemia and an ejection fraction of 54. Patient did have a history of a brief episode of atrial fibrillation during recent admission for lithotripsy complicated by subcapsular hematoma. Patient's H/H remained stable and KUB showed stable, but resolving subcapsular hematoma. Patient was on telemetry monitoring during this admission and remained in normal sinus rhythm the entire time. Patient's chest pain completely resolved and patient was determined to be medically safe for large. Patient was advised to follow-up with his primary care provider and has an appointment scheduled in 3 days. Patient instructed to return to the emergency room if he develops any new or worsening chest pain or any other concerning symptoms. Patient voiced understanding of plan and need for close follow-up and treatment. Pertinent Studies: EXAM: CARDIAC SPECT HISTORY: Chest pain, atrial fibrillation, hypertension, dyslipidemia, diabetes mellitus TECHNIQUE: A myocardial perfusion scan was performed using the single isotope 1 day protocol with technetium 99m sestamibi. [10 mCi] was injected intravenously for the rest exam followed by 30 mCi for the stress study. Pharmacologic stress with adenosine was monitored and interpreted by the physician's shop assistant. FINDINGS: Homogeneous tracer distribution is seen in the myocardial segments on stress and rest images without fixed or reversible defects. Gated SPECT LVEF: 54% Wall motion exam: Normal IMPRESSION: Normal myocardial perfusion scan KUB: DATE: 06/23/2020 HISTORY: Left flank pain. FINDINGS: Bowel gas pattern is nonobstructed. Bilateral renal calculi are demonstrated. I do not see any definitive ureteral calculi. There is vague increased density associated with the left kidney. On the previous CT examination, there was perinephric hematoma. This would represent residual perinephric hematoma. IMPRESSION: Bilateral renal calculi. Left renal outline is enlarged with increased density along the mid to lower pole region consistent with perinephric hematoma that was noted on previous CT. Dictated By: VISHNU TAVARES Signed By: VISHNU TAVARES Electronically signed: 06/23/2020 11:51:06 AM PORTABLE CHEST: HISTORY: Chest pain. FINDINGS: Lungs appear clear. No infiltrate or vascular congestion. Heart and mediastinum unremarkable. IMPRESSION: No acute process. Dictated By: JEAN PAUL NUNEZ Signed By: JEAN PAUL NUNEZ Electronically signed: 06/22/2020 11:12:12 AM Resuscitation Status: 06/22/20 13:08 Resuscitation Status Routine Co-Sign Provider: Resuscitation Status: FULL: Full Resuscitation Discussed with: pt and - Labs Lab Results: 06/22/20 04:40 06/22/20 06:50 Abnormal Lab Results - Last 48 hrs 06/22/20 04:40: RBC 4.16 L, Hgb 12.5 L, Hct 36.9 L, Plt Count 428 H, Monocytes # 0.7 H 06/22/20 06:50: Alkaline Phosphatase 114 H, Globulin 3.6 H, Albumin/Globulin Ratio 1.1 L 06/22/20 06:50: Troponin I 0.044 H 06/22/20 10:53: Troponin I 0.038 H 06/23/20 03:56: Triglycerides 171 H 06/23/20 08:44: Troponin I 0.050 H 06/23/20 11:25: Troponin I 0.032 H - Physical Exam Vitals: Vital Signs (12 hours) Temp Pulse Resp BP Pulse Ox 06/23/20 11:30 98.8 F 85 16 139/73 99 06/23/20 07:39 99 06/23/20 07:30 98.4 F 83 16 137/78 99 06/23/20 03:36 98.8 F 78 16 141/80 H 100 Weight Weight 242 lb 1.6 oz Physical Exam: The patient was seen and examined on the day of discharge. Problem - Discharge Plan Plan of Treatment: Chest pain -Resolved -Continue ASA, statin -Stress test myocardial perfusion scan normal -EF 54% -Will need follow up with PCP within one week L flank pain -Residual from L subcapsular hematoma -KUB showed stable, resolving subcapsular hematoma -H/H stable -Continue outpatient followup Case discussed with Dr. Rushing, attending physician who is in agreement with assessment and plan for discharge. Plan - Discharge Medications Home Medications: Medication Instructions Recorded Confirmed Type Atorvastatin Calcium 40 mg PO HS 12/27/18 06/22/20 History Gabapentin [Neurontin] 1 cap PO BID 12/27/18 06/22/20 History Lisinopril 10 mg PO QAM 12/27/18 06/22/20 History Baclofen 2 tab PO BID 05/21/19 06/22/20 History [id number] 1,000 mg PO DAILY 05/21/19 06/22/20 History Pantoprazole [Protonix] 40 mg PO QPM 05/21/19 06/22/20 History Glyburide/Metformin HCl 2 tablet PO BID 06/09/20 06/22/20 History [glyBURIDE/metFORMIN] Dicyclomine [Bentyl] 1 tab PO BID PRN 06/11/20 06/22/20 History Sertraline HCl 100 mg PO HS 06/11/20 06/22/20 History traMADol HCl [Ultram] 1 tab PO HS PRN 06/11/20 06/22/20 History Levofloxacin [Levaquin] 500 mg PO 0600 #7 tab 06/15/20 06/22/20 Rx Aspirin Chewable [Aspirin Chewable 81 mg PO DAILY tab 06/23/20 Rx Tablet] Allergies: ceftriaxone [From Rocephin] Allergy (Verified 06/09/20 10:52) ertugliflozin [From Steglatro] Allergy (Verified 06/09/20 10:52) severe n/v, dizziness, extreme b/s increse - Discharge Instructions Discharge Instructions:: Return immediately to the emergency room if you develop new or worsening chest pain, SOB, or any other new or concerning symptoms. It is extremely important t hat you follow up with your primary care provider for further evaluation after discharge. Activity:: Activity as Tolerated Nourishment:: Diabetic Diet, Heart Healthy Diet - Follow up Plan Referrals: RUDY BRITTON MD [Primary Care Provider] - 3 Days Disposition: HOME Quality - Care Measures CORE MEASURES:: N/A
== END 2020-06-23 15:00 | disposition home or self-care (01) | DRG 313 ==
LOC: ERS 04:16 → ERHOLD 08:29 → 2NO 17:46
PROVIDERS: ADMIT Internal Medicine; ATTEND Internal Medicine
DX: R07.9 Chest pain, unspecified (principal); I10 Essential (primary) hypertension; E11.9 Type 2 diabetes mellitus without complications; Z20.828 Contact with and (suspected) exposure to other viral communicable diseases; F40.240 Claustrophobia; E78.5 Hyperlipidemia, unspecified; G35 Multiple sclerosis; G47.30 Sleep apnea, unspecified; I48.91 Unspecified atrial fibrillation; E78.00 Pure hypercholesterolemia, unspecified; F41.9 Anxiety disorder, unspecified; N28.89 Other specified disorders of kidney and ureter; Z88.8 Allergy status to other drugs, medicaments and biological substances; Z79.84 Long term (current) use of oral hypoglycemic drugs; Z79.899 Other long term (current) drug therapy
CPT/HCPCS: 36415; 36416; 71045; 74018; 78452; 80053; 80061; 82553; 84484; 85025; 87635; 93005; 93017; 94760; A9500; J0153; U0003

== ENCOUNTER 2020-06-24 16:32 | Observation (INO) | payer OTHER ==
[2020-06-24 17:28] LABS: #Basophils 0.1 thou/uL (0.0-0.2); #Eosinphils 0.1 thou/uL (0.0-0.7); #Monocytes 0.6 thou/uL (0.11-0.59); %Basophils 0.8 % (0.0-1.0); %Eosinophils 0.7 % (0.0-10.0); %Lymphocytes 23.1 % (21.0-51.0); %Monocytes 7.2 % (0.0-10.0); %Neutrophils 68.2 % (42.0-75.0); Hemoglobin 11.4 g/dL (14.0-18.0); Mean Corpuscular HGB CONC 33.2 g/dL (32.0-36.0); Mean Corpuscular Hemoglobin 29.5 pg (27.0-31.0); Mean Corpuscular Volume 88.8 fL (78.0-98.0); Mean Platelet Volume 7.6 fL (7.4-10.4); Platelet Count 402 thou/uL (130-400); RBC Distribution Width 11.8 % (11.5-14.5); Red Blood Cell (RBC) Count 3.85 mill/uL (4.70-6.10); White Blood Cell (WBC) Count 8.8 thou/uL (4.8-10.8)
--- NOTE | 2020-06-24 17:37 | RAD ---
XR Chest 1 View Portable History: Cough Comparison: Radiograph 2 days prior Findings: Paranasal increased interstitial markings the lungs. No pneumothorax. Heart size upper limi ts of normal. Pulmonary arteries are mildly distended. Impression: Mild increased interstitial markings can be seen with early pulmonary venous congestion/e rodger.
[2020-06-24 17:45] LABS: ALT (SGPT) 21 U/L (8-55); AST (SGOT) 16 U/L (5-34); Albumin 3.9 g/dL (3.5-5.0); Alkaline Phosphatase 119 U/L (40-110); Anion Gap 18 mmol/L (10-20); BUN (Urea Nitrogen) 21 mg/dL (8.4-25.7); Bilirubin, Total 0.6 mg/dL (0.2-1.2); Calc. Creatinine Clearance 0 mL/min (70-130); Calcium 9.2 mg/dL (7.8-10.44); Carbon Dioxide 19 mmol/L (22-29); Chloride 103 mmol/L (98-107); Globulin 2.8 g/dL (2.4-3.5); Glucose 208 mg/dL (70-105); Lipase 118 U/L (8-78); Potassium 4.3 mmol/L (3.5-5.1); Protein, Total 6.7 g/dL (6.0-8.3); Sodium 136 mmol/L (136-145)
--- NOTE | 2020-06-24 18:17 | CT ---
CT Abdomen Pelvis W Con History: Left-sided abdominal pain Comparison: CT abdomen and pelvis June 11, 2020, April 18, 2020 Findings: Large left posterior perinephric hematoma measures up to 3.8 cm in size, relatively similar . No active contrast extravasation is appreciated. The left-sided inferior renal collecting system calculi appears similar with a cluster of 4-5 calcifi cations present, largest measuring up to 5 mm. There are also punctate 3 mm interpolar and 2 mm superior pole renal calculi. Punctate 1-2 mm right superior and 2-3 mm right interpolar renal calculi . Punctate 1-2 mm right inferior renal calculus. The left-sided renal parenchymal enhancement is relatively symmetric to the right. Small cysts of both kidneys are similar. Liver, gallbladder, spleen, pancreas are unremarkable. Aortoiliac contour is nonaneurysmal. No dilated loops of large or small bowel. No periappendiceal inf lammation. No acute osseous abnormality. Impression: 1. Similar appearance of the relatively large left posterior perinephric hematoma measuring up to 3.5 cm in size. Renal parenchymal enhancement is symmetric. 2. Similar appearance of the bilateral nonobstructing renal calculi.
--- NOTE | 2020-06-24 18:22 | CT ---
CT ANGIO OF CHEST PERFORMED WITH INTRAVENOUS CONTRAST ENHANCEMENT WITH 3D RECONSTRUCTIONS: 06/24/20 HISTORY: Syncope. FINDINGS: The lungs are clear of infiltrative process. No pleural effusions or pulmonary nodules identified. There is no significant mediastinal or hilar adenopathy. The pulmonary artery opacification is poor. I see no obvious signs of any large central embolus. The visualized liver parenchyma shows no focal findings. Partial visualization of the subcapsular hem atoma of the left kidney has been noted on previous exams. Small left pleural effusion is present. IMPRESSION: 1. Poor pulmonary artery opacification. I see no obvious evidence of any large central embolus. No infiltrative lung process. 2. Left renal subcapsular hematoma partially visualized. POS: ARYA
[2020-06-24 19:04] LABS: Bilirubin Negative (Negative); Blood, Urine 1+ (Negative); Clarity Clear (Clear); Glucose, Urine (Dipstick) 200 mg/dL (Negative); Ketone, Urine Negative (Negative); Leukocyte Negative Leu/uL (Negative); Nitrite Negative (Negative); Protein, Urine (Dipstick) 50 mg/dL (Neg-Trace); Urobilinogen Normal mg/dL (Less than 2); pH, Urine 5.5 (5.0-9.0)
[2020-06-24 19:05] LABS: Squamous Epithelial 0-3 HPF (0-3)
[2020-06-24 19:11] LABS: Bacteria/HPF 1+ HPF (None Seen)
--- NOTE | 2020-06-24 19:32 | PDOC.HHP ---
Hospitalist HPI - History of Present Illness SOB History of Present Illness: PCP: Dr. Oliver The patient is a 50-year-old male with a past medical history significant for HTN, DM 2, HLD, transverse myelitis (2007) that presents to the emergency department via EMS for shortness of breath and abdominal pain. Patient reports feeling mildly short of breath since approximately 8:00 this morning. He denies any cough, wheezing, history of COPD/asthma. He has no known sick contacts. He denies any chest pain, heart palpitations, lightheadedness or swelling to his lower extremities. He reports associated left-sided abdominal pain described as mild to moderate, poking pressure, intermittent, worse with movements and relieved by nothing. Denies any vomiting, diarrhea, hematochezia/melena. Denies any hematuria or dysuria. He does report that is urine does appear to be concentrated. Denies any fever or chills. Patient underwent recent lithotripsy approximately 2 weeks ago and subsequently developed a hemorrhage of the left kidney. The patient spent several days in the hospital and was discharged home this past Tuesday. The patient was also discharged from this facility yesterday for chief complaint of chest pain heart palpitations. The patient underwent full cardiac work-up including a normal cardiac stress test. ED Course: VITAL SIGNS TueJun 24, 2020 16:53 KIMANI Frey Tram BP: 121/61, MAP: 77, Pulse: 89, Resp: 20, Temp: 98.4 (Oral), Pain: 5, O2 sat: 100 on (Room Air), Time: 06/24/2020 16:53. VITAL SIGNS TueJun 24, 2020 17:45 KIMANI Frey Tram BP: 140/70, MAP: 93, Pulse: 83, Resp: 21, Temp: 98.3 (Oral), Pain: 4, O2 sat: 97 on (Room Air), Time: 06/24/2020 17:45. VITAL SIGNS TueJun 24, 2020 18:52 KIMANI Frey Tram BP: 126/56, MAP: 77, Pulse: 83, Resp: 24, Temp: 98.3 (Oral), Pain: 5, O2 sat: 99 on (Room Air), Time: 06/24/2020 18:52. Medications: None Hospitalist ROS - Review of Systems All other systems reviewed; all pertinent +/- noted in HPI/Subj - Medication Medications: glyBURIDE-metformin TueJun 24, 2020 18:46 KIMANI Frey, Tram TABLET : Strength - 5 mg-500 mg : ORAL Patient Dose: 2 tab(s) null 2 times a day (before meals). lisinopril TueJun 24, 2020 18:46 Tk RN, Tram TABLET : Strength - 10 mg : ORAL Patient Dose: 10 mg Oral once a day (in the morning). Fish Oil 1,000 mg capsule TueJun 24, 2020 18:46 Tk RN, Tram capsule : Strength - 1,000 mg : ORAL Patient Dose: 1 tab(s) Oral once a day. gabapentin TueJun 24, 2020 18:46 KIMANI Frye, Tram capsule : Strength - 300 mg : ORAL Patient Dose: 1 tab(s) Oral once a day. atorvastatin TueJun 24, 2020 18:46 KIMANI Frey, Tram tablet : Strength - 40 mg : ORAL Patient Dose: 40 mg Oral once a day. traMADol TueJun 24, 2020 18:46 KIMANI Frey, Tram tablet : Strength - 50 mg : ORAL Patient Dose: 1 tab(s) Oral As Needed. sertraline TueJun 24, 2020 18:46 KIMANI Frey, Tram tablet : Strength - 100 mg : ORAL Patient Dose: ONCE. baclofen oral TueJun 24, 2020 18:47 KIMANI Frey, Tram tablet : Strength - 10 mg : ORAL Patient Dose: ONCE. levoFLOXacin oral TueJun 24, 2020 18:47 KIMANI Frey, Tram tablet : Strength - 500 mg : ORAL Patient Dose: ONCE. dicyclomine oral TueJun 24, 2020 18:47 KIMANI Frey, Tram tablet : Strength - 20 mg : ORAL Patient Dose: 3 times a day. Allergies: Rocephin, [place]ver Hospitalist History - Past Medical History Source: patient, family, RN notes reviewed Cardiac: reports: AFIB (Paroxysmal), HTN, Hyperlipidemia MECHANICAL DETAILER: reports: Peripheral neuropathy, Other (Transverse myelitis (2000)) Psych: reports: Depression Endocrine: reports: Diabetes (Type II, [id number]) - Past Surgical History Past Surgical History: reports: Other (Lithotripsy, left shoulder surgery, nasal plasty, circumcision) - Family History Family History: reports: Other (Noncontributory for coagulation disorders) - Social History Smoking Status: Never smoker Alcohol: reports: None Living Situation: With Family Occupation: Works in construction Activity level: independent ambulation - Exam General Appearance: NAD, awake alert. negative: ill appearing General - other findings: Uncomfortable Eye: anicteric sclera ENT: normocephalic atraumatic, moist mucosa Neck: supple, symmetric Heart: RRR, no murmur, no gallops, no rubs, normal peripheral pulses Respiratory: CTAB, no wheezes, no rales, no ronchi, normal chest expansion, no tachypnea Gastrointestinal: soft, non-tender, normal bowel sounds, no guarding, no rigidity Gastrointestinal - other findings: Left CVA tenderness, no central spinous tenderness no bruising or hematoma Extremities: no cyanosis, no edema Neurological: no focal deficits Musculoskeletal: normal tone, normal strength Psychiatric: normal affect, A&O x 3 Hospitalist Results - Labs Result Diagrams: 06/24/20 17:16 06/24/20 17:16 Lab results: WBC 8.8 thou/uL (4.8-10.8) 06/24/20 17:16 Hgb 11.4 g/dL (14.0-18.0) L 06/24/20 17:16 Hct 34.2 % (42.0-52.0) L 06/24/20 17:16 MCV 88.8 fL (78.0-98.0) 06/24/20 17:16 Plt Count 402 thou/uL (130-400) H 06/24/20 17:16 Neutrophils % 68.2 % (42.0-75.0) 06/24/20 17:16 Sodium 136 mmol/L (136-145) 06/24/20 17:16 Potassium 4.3 mmol/L (3.5-5.1) 06/24/20 17:16 Chloride 103 mmol/L (98-107) 06/24/20 17:16 Carbon Dioxide 19 mmol/L (22-29) L 06/24/20 17:16 BUN 21 mg/dL (8.4-25.7) 06/24/20 17:16 Creatinine 1.54 mg/dL (0.7-1.3) H 06/24/20 17:16 Glucose 208 mg/dL (70-105) H 06/24/20 17:16 Lactic Acid 3.7 mmol/L (0.5-2.2) H 06/24/20 17:16 Calcium 9.2 mg/dL (7.8-10.44) 06/24/20 17:16 Total Bilirubin 0.6 mg/dL (0.2-1.2) 06/24/20 17:16 AST 16 U/L (5-34) 06/24/20 17:16 ALT 21 U/L (8-55) 06/24/20 17:16 Alkaline Phosphatase 119 U/L (40-110) H 06/24/20 17:16 Troponin I 0.028 ng/mL (< 0.028) 06/24/20 17:16 B-Natriuretic Peptide 15.1 pg/mL (0-100) 06/24/20 17:16 Serum Total Protein 6.7 g/dL (6.0-8.3) 06/24/20 17:16 Albumin 3.9 g/dL (3.5-5.0) 06/24/20 17:16 Lipase 118 U/L (8-78) H 06/24/20 17:16 Urine Ketones Negative mg/dL (Negative) 06/24/20 18:33 Urine Blood 1+ (Negative) A 06/24/20 18:33 Urine Nitrite Negative (Negative) 06/24/20 18:33 Ur Leukocyte Esterase Negative Elizabeth/uL (Negative) 06/24/20 18:33 Urine RBC 7-10 HPF (0-3) A 06/24/20 18:33 Urine WBC 7-10 HPF (0-3) A 06/24/20 18:33 Ur Squamous Epith Cells 0-3 HPF (0-3) 06/24/20 18:33 Urine Bacteria 1+ HPF (None Seen) A 06/24/20 18:33 - EKG Interpretation EK lead EKG shows normal sinus rhythm, Rate (beats per minute): 85, with no ectopics, Conduction normal, ST segments normal, [place], left, Nonspecific T wave changes. - Radiology Interpretation CT scan - abdomen Status: report reviewed by me Additional Comment: CT abdomen pelvis with contrast Impression: 1. Similar appearance of a relatively large left posterior periphrenic hematoma measuring up to 3.5 cm in size. Renal parenchymal enhancement is symmetric. 2. Similar appearance of the bilateral nonobstructing renal calculi CT scan - chest Status: report reviewed by me Additional Comment: CTA chest and thorax with and without contrast Impression: 1. Poor pulmonary artery opacification. I see no obvious evidence of any large central embolus. No infiltrative lung process. 2. Left renal subscapular hematoma partially visualized Chest x-ray Status: report reviewed by me Additional Comment: Mild increased interstitial markings can be seen with early pulmonary venous congestion/edema. Hospitalist H&P A/P - Problem (1) Renal hematoma, left Code(s): S37.012A - MINOR CONTUSION OF LEFT KIDNEY, INITIAL ENCOUNTER Status: Acute (2) Abdominal pain Code(s): R10.9 - UNSPECIFIED ABDOMINAL PAIN Status: Acute (3) EMMY (acute kidney injury) Code(s): N17.9 - ACUTE KIDNEY FAILURE, UNSPECIFIED Status: Acute (4) Lactic acidosis Code(s): E87.2 - ACIDOSIS Status: Acute (5) Pneumonia Code(s): J18.9 - PNEUMONIA, UNSPECIFIED ORGANISM Status: Acute (6) DM2 (diabetes mellitus, type 2) Status: Acute (7) Transverse myelitis Status: Acute (8) Depression Code(s): F32.9 - MAJOR DEPRESSIVE DISORDER, SINGLE EPISODE, UNSPECIFIED Status: Acute (9) Peripheral neuropathy Code(s): G62.9 - POLYNEUROPATHY, UNSPECIFIED Status: Acute (10) HTN (hypertension) Code(s): I10 - ESSENTIAL (PRIMARY) HYPERTENSION Status: Acute (11) HLD (hyperlipidemia) Code(s): E78.5 - HYPERLIPIDEMIA, UNSPECIFIED Status: Acute - Plan Plan: 50/M with recent lithotripsy complicated by left renal hematoma presents for shortness of breath and abdominal pain. Admit to medical floor, observation status. Expected length of stay less than 2 midnights. Presented stable vital signs. EKG normal sinus rhythm. CT abdomen pelvis positive left renal hematoma CTA chest negative for pulmonary embolism. CXR mild increased interstitial markings. WBC 8.8, LA 3.7repeat LA 1.9 Creatinine 1.54, BUN 21 Lipase 118 Troponin 0.028, BNP 15.1, DD 1.4 UA 1+ bacteria, 710 WBCs, no leukocyte esterase, no nitrites #Renal hematoma, left Posterior periphrenic hematoma measuring 3.5 cm. ER MD consulted on-call urology, agreed to follow. Dr. Mosqueda to round in a.m. Ordered to trend H&H. Pain control. #Abdominal pain Likely related to problem #1. #EMMY Presented creatinine 1.54, baseline appears to be around 1. Continue IV fluids. Hold home dose lisinopril and metformin for now. Recheck in a.m. #Lactic acidosis Presented LA 3.7 with stable vital signs. Order repeat lactic acid. Continue IV fluids. #Pneumonia Present on admission, taking Levaquin outpatient. Reports has 2 more pills to take. Will restart Levaquin tonight. Pharmacy to manage secondary to EMMY. #DM2 Takes glyburide/metformin combination at home. We will hold for now. Start moderate ISS. Accu-Cheks AC at bedtime. #Transverse myelitis Unknown [id number]. Takes baclofen, tramadol for residual spasticity at home. Restart home medications when reconciled by nursing. #Depression Denies SI/HI. Restart home dose sertraline and as needed Xanax. #HTN Presented normotensive. Takes home dose lisinopril. We will hold lisinopril due to EMMY for now. Continue to monitor BP. #HLD Takes atorvastatin official at home. Restart home medications. SCDs for DVT prophylaxis. No pharmacological DVT prophylaxis. Protonix for GI prophylaxis. Full code. Discussed the case with .
[2020-06-24] MEDS ORDERED: Acetaminophen 325 MG TAB PO PRN (20:16)
[2020-06-24] MEDS ORDERED: Ondansetron ODT 4 MG TAB PO PRN (20:16)
[2020-06-24] MEDS ORDERED: HYDROcodone/Acetaminophen 5/325 mg Tablet PO PRN (20:16)
[2020-06-24] MEDS ORDERED: Ondansetron PF 4 MG/2 ML Vial IVP PRN (20:16)
[2020-06-24] MEDS ORDERED: Morphine 2 MG/ML VIAL SLOW IVP PRN (20:20)
[2020-06-24] MEDS ORDERED: HumaLOG 300 UNITS/3 ML VIAL SC PRN (20:25)
[2020-06-24] MEDS ORDERED: Dextrose 50% Abboject 50 ML SYRINGE SLOW IVP PRN (20:25)
[2020-06-24] MEDS ORDERED: Dextrose 5% in Water 1,000 ML IV PRN (20:25)
[2020-06-24] MEDS ORDERED: Sodium Chloride 0.9% 1,000 ML IV SCH (20:30)
[2020-06-24 20:47] LABS: Lactic Acid 1.9 mmol/L (0.5-2.2)
[2020-06-24 23:37] LABS: Hemoglobin 11.4 g/dL (14.0-18.0)
[2020-06-24 23:42] VITALS: BMI 35.2
[2020-06-25] MEDS: HYDROcodone/Acetaminophen 5/325 mg Tablet PO PRN ×3 (00:08→20:19)
[2020-06-25] MEDS ORDERED: ALPRAZolam 0.25 MG TAB PO SCH (00:30)
[2020-06-25] MEDS ORDERED: Mag-Al 1200 mg/1200 mg/30 ML UDCUP PO PRN (02:05)
[2020-06-25] MEDS: HumaLOG 300 UNITS/3 ML VIAL SC PRN ×2 (06:30→19:06)
[2020-06-25 07:09] LABS: #Basophils 0.1 thou/uL (0.0-0.2); #Eosinphils 0.1 thou/uL (0.0-0.7); #Lymphocytes 2.4 thou/uL (1.20-3.40); #Monocytes 0.5 thou/uL (0.11-0.59); #Neutrophils 3.9 thou/uL (1.40-6.50); %Basophils 0.8 % (0.0-1.0); %Eosinophils 1.7 % (0.0-10.0); %Lymphocytes 34.4 % (21.0-51.0); %Neutrophils 56.1 % (42.0-75.0); Hemoglobin 11.6 g/dL (14.0-18.0); Mean Corpuscular HGB CONC 32.2 g/dL (32.0-36.0); Mean Corpuscular Hemoglobin 29.2 pg (27.0-31.0); Mean Corpuscular Volume 90.8 fL (78.0-98.0); Mean Platelet Volume 7.6 fL (7.4-10.4); Platelet Count 384 thou/uL (130-400); RBC Distribution Width 11.9 % (11.5-14.5); Red Blood Cell (RBC) Count 3.95 mill/uL (4.70-6.10); White Blood Cell (WBC) Count 6.9 thou/uL (4.8-10.8)
[2020-06-25 07:29] LABS: Anion Gap 15 mmol/L (10-20); BUN (Urea Nitrogen) 16 mg/dL (8.4-25.7); Calc. Creatinine Clearance 150 mL/min (70-130); Calcium 9.4 mg/dL (7.8-10.44); Carbon Dioxide 22 mmol/L (22-29); Chloride 104 mmol/L (98-107); Glucose 258 mg/dL (70-105); Potassium 4.1 mmol/L (3.5-5.1); Sodium 137 mmol/L (136-145)
[2020-06-25] MEDS ORDERED: traMADol HCl 50 MG TAB PO PRN (09:05)
[2020-06-25] MEDS ORDERED: ALPRAZolam 0.5 MG TAB PO PRN (09:05)
[2020-06-25 11:53] LABS: Hemoglobin 11.1 g/dL (14.0-18.0)
--- NOTE | 2020-06-25 13:59 | CON ---
DATE OF CONSULTATION: 06/25/2020 CHIEF COMPLAINT: Difficulty breathing, dizziness. REASON FOR CONSULTATION: Left perinephric hematoma. HISTORY OF PRESENT ILLNESS: This is a 50-year-old male, who underwent shockwave lithotripsy on June 10. He developed a hematoma with flank pain afterwards and was admitted for several days through [facility]. He had been seen in the ER couple of times prior to this for abdominal pain and has had a cervical spine MRI in July 2019, CT of his head in December 2018. He has overall been recovering well after the perinephric hematoma with only slight residual left-sided flank pain. Over the last 36 hours or so, he developed difficulty breathing and lightheadedness and was brought to the hospital yesterday. At that time, he underwent abdominal imaging and was told that his hematoma was enlarging with active bleeding and that he might need surgery or this is at least how he relays the discussion to me. Overnight, he was given fluids and reports that his dizziness and difficulty breathing has completely resolved. Today, he denies suprapubic pain, hematuria, dysuria, nausea, vomiting, difficulty breathing, fevers, or chills. He does still have slight left-sided flank discomfort PAST MEDICAL HISTORY: 1. Diabetes. 2. Transverse myelitis. 3. Hyperlipidemia. 4. Hypertension. 5. Kidney stone. 6. Perinephric hematoma. 7. Atrial fibrillation. PAST SURGICAL HISTORY: 1. Shockwave lithotripsy. 2. Shoulder surgery. 3. Nasal surgery. FAMILY HISTORY: Reviewed, noncontributory. SOCIAL HISTORY: Nonsmoker. No substance abuse. REVIEW OF SYSTEMS: A 12-point review of systems is performed and negative except as mentioned above. MEDICATIONS: Reviewed. He has multiple medications that could be a potential cause for lightheadedness. PHYSICAL EXAMINATION: GENERAL: No acute distress. Sitting up in bed, eating his lunch, conversing with his . LUNGS: Unlabored breathing. Symmetric chest expansion. HEART: Regular rate and rhythm. ABDOMEN: Soft, nontender, nondistended. No appreciable flank tenderness. No suprapubic tenderness. SKIN: Warm and dry. No peripheral edema or cyanosis. NEUROLOGIC: Alert and oriented x3. PSYCHIATRIC: Normal mood and affect. LABORATORY DATA: Hemoglobin 11.1 today, 11.4 yesterday on admission, this is stable, in fact elevated from discharge on 06/14. Creatinine 0.89. IMAGING DATA: I personally reviewed his CT scan, both the images and the radiology report. His perinephric hematoma appears unchanged. The lower pole stone has been fragmented into several smaller pieces. The radiology report indicates stable hematoma with no active bleeding. ASSESSMENT AND PLAN: Left perinephric hematoma, status post shockwave lithotripsy, stable. No active bleeding. There is no surgical intervention indicated for this as it is stable and mildly symptomatic. This is unrelated to his difficulty breathing or lightheadedness. I recommended to the patient that he does not seek any further workup for this issue until he sees me in a few weeks. Job ID: [id number] [facility]
[2020-06-25] MEDS: Dicyclomine 20 MG TAB PO SCH ×2 (16:25→20:13)
[2020-06-25] MEDS: HumaLOG 300 UNITS/3 ML VIAL SC SCH (19:08)
[2020-06-25 19:31] LABS: Hemoglobin 11.1 g/dL (14.0-18.0)
[2020-06-25] MEDS: Baclofen 10 MG TAB PO SCH (20:13)
[2020-06-25] MEDS: Fish Oil 1,000 MG CAP PO SCH (20:13)
[2020-06-25] MEDS: Gabapentin 300 MG CAP PO SCH (20:14)
[2020-06-25] MEDS: glyBURIDE 5 MG TAB PO SCH (20:15)
[2020-06-25] MEDS: metFORMIN 500 MG TAB PO SCH (20:17)
[2020-06-25] MEDS ORDERED: Pantoprazole 40 MG VIAL IVP SCH (21:00)
[2020-06-25] MEDS ORDERED: Atorvastatin Calcium 40 MG TAB PO SCH (21:00)
[2020-06-26] MEDS: HumaLOG 300 UNITS/3 ML VIAL SC PRN ×2 (06:25→13:01)
[2020-06-26] MEDS ORDERED: Lisinopril 10 MG TAB PO SCH (09:00)
--- NOTE | 2020-06-26 09:03 | PDOC.HOSPP ---
- Subjective Encounter Date: 06/25/20 Encounter Time: 12:30 Subjective: Patient up in bed denies any complaints currently. - Objective Vital Signs & Weight: Vital Signs (12 hours) Temp Pulse Resp BP Pulse Ox 06/26/20 07:18 97.9 F 78 16 115/71 100 Weight Admit Weight 238 lb 9.008 oz Weight 238 lb 9 oz I&O: 06/25/20 06/26/20 06/27/20 06:59 06:59 06:59 Intake Total 1000 Output Total 1450 1400 Balance -1450 -400 Result Diagrams: 06/25/20 18:56 06/25/20 06:58 Additional Labs: Accuchecks 06/26/20 06/25/20 06/25/20 04:27 19:58 16:30 POC Glucose 243 H 298 H 320 H 06/25/20 11:58 POC Glucose 298 H Hospitalist ROS - Review of Systems Cardiovascular: denies: chest pain, palpitations, orthopnea, paroxysmal noc. dyspnea, edema, light headedness, other Gastrointestinal: denies: nausea, vomiting, abdominal pain, diarrhea, constipation, melena, hematochezia, other Genitourinary: denies: dysuria, frequency, incontinence, hematuria, retention, other - Medication Medications: Active Medications Generic Name Dose Route Start Last Admin Trade Name Freq PRN Reason Stop Dose Admin Hydrocodone Bitart/Acetaminophen 1 tab 06/24/20 20:16 06/25/20 20:19 Hydrocodone/Acetaminophen 5/325 Mg Tablet PO 1 tab Q4H PRN Administration Moderate Pain (4-6) Al Hydroxide/Mg Hydroxide 30 ml 06/25/20 02:05 06/25/20 02:29 Mag-Al 1200 Mg/1200 Mg/30 Ml Udcup PO 30 ml Q4H PRN Administration Indigestion Alprazolam 0.5 mg 06/25/20 09:05 06/25/20 14:28 Alprazolam 0.5 Mg Tab PO 0.5 mg DAILYPRN PRN Administration Anxiety Atorvastatin Calcium 40 mg 06/25/20 21:00 06/25/20 20:12 Atorvastatin Calcium 40 Mg Tab PO 40 mg HS SENAIT Administration Baclofen 20 mg 06/25/20 21:00 06/25/20 20:13 Baclofen 10 Mg Tab PO 20 mg BID SENAIT Administration Dicyclomine HCl 20 mg 06/25/20 15:00 06/25/20 20:13 Dicyclomine 20 Mg Tab PO 20 mg TID SENAIT Administration Fish Oil 2,000 mg 06/25/20 21:00 06/25/20 20:13 Fish Oil 1,000 Mg Cap PO 2,000 mg BID SENAIT Administration Gabapentin 300 mg 06/25/20 21:00 06/25/20 20:14 Gabapentin 300 Mg Cap PO 300 mg BID SENAIT Administration Glyburide 10 mg 06/25/20 21:00 06/25/20 20:15 Glyburide 5 Mg Tab PO 10 mg BID SENAIT Administration Insulin Human Lispro 0 units 06/24/20 20:25 06/26/20 06:25 Humalog 300 Units/3 Ml Vial SC 4 unit .MODERATE SLIDING SC PRN Administration Moderate Correctional Scale Insulin Human Lispro 0 units 06/24/20 20:25 06/24/20 22:11 Humalog 300 Units/3 Ml Vial SC 2 unit .BEDTIME SLIDING SC PRN Administration Bedtime Correctional Scale Insulin Human Lispro 5 units 06/25/20 17:00 06/25/20 19:08 Humalog 300 Units/3 Ml Vial SC Not Given TID-WM SENAIT Metformin HCl 1,000 mg 06/25/20 21:00 06/25/20 20:17 Metformin 500 Mg Tab PO 1,000 mg BID SENAIT Administration Pantoprazole Sodium 40 mg 06/25/20 21:00 06/25/20 23:59 Pantoprazole 40 Mg Vial IVP Not Given [facility] Pantoprazole Sodium 40 mg 06/25/20 21:00 06/25/20 20:19 Pantoprazole 40 Mg Tab PO 40 mg QPM SENAIT Administration Sertraline HCl 100 mg 06/25/20 21:00 06/25/20 20:15 Sertraline Hcl 100 Mg Tab PO 100 mg HS SENAIT Administration - Exam Neck: negative: supple, symmetric, no JVD, no thyromegaly, no lymphadenopathy, no carotid bruit, JVD Heart: negative: RRR, no murmur, no gallops, no rubs, normal peripheral pulses, irregular, diminshed peripheral pulses, murmur present, II/IV, III/IV Respiratory: negative: CTAB, no wheezes, no rales, no ronchi, normal chest expansion, no tachypnea, normal percussion, rales, rhonchi, tachypneic, wheezes Gastrointestinal: negative: soft, non-tender, non-distended, normal bowel sounds, no palpable masses, no hepatomegaly, no splenomegaly, no bruit, no guarding, no rigidity, tender to palpation, distended, diminished bowl sounds, voluntary guarding Hosp A/P (1) Abdominal pain Code(s): R10.9 - UNSPECIFIED ABDOMINAL PAIN Status: Acute (2) DM2 (diabetes mellitus, type 2) Status: Acute (3) Depression Code(s): F32.9 - MAJOR DEPRESSIVE DISORDER, SINGLE EPISODE, UNSPECIFIED Status: Acute (4) HLD (hyperlipidemia) Code(s): E78.5 - HYPERLIPIDEMIA, UNSPECIFIED Status: Acute (5) HTN (hypertension) Code(s): I10 - ESSENTIAL (PRIMARY) HYPERTENSION Status: Acute (6) Renal hematoma, left Code(s): S37.012A - MINOR CONTUSION OF LEFT KIDNEY, INITIAL ENCOUNTER Status: Acute - Plan Patient's H&H is stable we will continue to monitor. I do not think any surgical intervention is required at this time I did discuss this with the patient that he will have pain. However patient states that he has been having some dizziness which has been going on all day yesterday which concerned him so he came to the hospital. We will get an MRI brain to rule out stroke. However currently he has no more dizziness. Dizziness could be secondary to vertigo versus posterior circulation stroke.
[2020-06-26] MEDS: Baclofen 10 MG TAB PO SCH (09:50)
[2020-06-26] MEDS: glyBURIDE 5 MG TAB PO SCH (09:51)
[2020-06-26] MEDS: Gabapentin 300 MG CAP PO SCH (09:51)
[2020-06-26] MEDS: Dicyclomine 20 MG TAB PO SCH (09:51)
[2020-06-26] MEDS: Fish Oil 1,000 MG CAP PO SCH (09:51)
[2020-06-26] MEDS: metFORMIN 500 MG TAB PO SCH (09:51)
[2020-06-26] MEDS: HumaLOG 300 UNITS/3 ML VIAL SC SCH ×2 (09:52→13:00)
[2020-06-26 13:04] VITALS: BP 122/81; TEMP 98.4
--- NOTE | 2020-06-26 13:25 | MRI ---
MRI BRAIN NONCONTRAST: DATE: 06/25/2020 HISTORY: 50-year-old male with dizziness. COMPARISON: 12/28/2018. FINDINGS: The ventricles are normal in size and configuration. There is no restricted diffusion, midline shift or any other mass effect, recent intraaxial hemorrhage, or extraaxial fluid collection. There are n umerous scattered punctate T2-hyperintensities in the cerebral white matter consistent with mild chr onic ischemic white matter changes due to mild microvascular atherosclerosis. There has been no inter jenn change. IMPRESSION: 1. Mild chronic ischemic white matter changes. 2. Otherwise negative. jnr POS: JIN
--- NOTE | 2020-06-26 16:35 | PDOC.DS.DS ---
Provider - Provider Date of Admission: 06/24/20 18:32 Date of Discharge: 06/26/20 Admitting Provider: Aicha Jennings MD Consultations: Urology Primary Care Physician: RUDY BRITTON MD Course - Hospital Course Hospital Course: Patient is a very pleasant 50-year-old male who initially presented to the hospital with complains of left flank pain and dizziness. Patient had a CT abdomen pelvis which indicated left renal hematoma which was not new. Patient recently had lithotripsy and was noted to have a left posterior perinephric hematoma. Patient's H&H continued to be stable. Given his dizziness an MRI was done. I was notified by the radiologist that the MRI was normal. Patient at this time will be discharged home he will follow up with the primary and urology. Patient will follow up with urology as outpatient Resuscitation Status: 06/24/20 20:16 Resuscitation Status Routine Co-Sign Provider: Resuscitation Status: FULL: Full Resuscitation Discussed with: patient - Labs Lab Results: 06/25/20 18:56 06/25/20 06:58 Abnormal Lab Results - Last 48 hrs 06/24/20 17:16: Carbon Dioxide 19 L, Creatinine 1.54 H, Alkaline Phosphatase 119 H, Lipase 118 H 06/24/20 17:16: D-Dimer 1.84 H 06/24/20 17:16: Lactic Acid 3.7 H 06/24/20 17:16: RBC 3.85 L, Hgb 11.4 L, Hct 34.2 L, Plt Count 402 H, Monocytes # 0.6 H 06/24/20 18:33: Ur Specific Mineral 1.040 H, Urine Protein 50 A, Urine Glucose (UA) 200 A, Urine Blood 1+ A, Urine RBC 7-10 A, Urine WBC 7-10 A, Urine Bacteria 1+ A, Hyaline Casts 21-50 A 06/24/20 23:23: Hgb 11.4 L, Hct 34.1 L 06/25/20 06:58: RBC 3.95 L, Hgb 11.6 L, Hct 35.9 L 06/25/20 11:47: Hgb 11.1 L, Hct 33.3 L 06/25/20 18:56: Hgb 11.1 L, Hct 34.4 L Microbiology - Entire Visit 06/24/20 18:33 Urine clean catch Urine Culture - Final NO GROWTH AT 36 HOURS - Physical Exam Vitals: Vital Signs (12 hours) Temp Pulse Resp BP BP Pulse Ox 06/26/20 13:04 98.4 F 84 18 122/81 98 06/26/20 09:55 135/77 06/26/20 08:00 100 06/26/20 07:18 97.9 F 78 16 115/71 100 Weight Admit Weight 238 lb 9.008 oz Weight 238 lb 9 oz Physical Exam: The patient was seen and examined on the day of discharge. Problem - Problem (1) Abdominal pain Code(s): R10.9 - UNSPECIFIED ABDOMINAL PAIN Status: Acute (2) DM2 (diabetes mellitus, type 2) Status: Acute (3) Depression Code(s): F32.9 - MAJOR DEPRESSIVE DISORDER, SINGLE EPISODE, UNSPECIFIED Status: Acute (4) HLD (hyperlipidemia) Code(s): E78.5 - HYPERLIPIDEMIA, UNSPECIFIED Status: Acute (5) HTN (hypertension) Code(s): I10 - ESSENTIAL (PRIMARY) HYPERTENSION Status: Acute (6) Renal hematoma, left Code(s): S37.012A - MINOR CONTUSION OF LEFT KIDNEY, INITIAL ENCOUNTER Status: Acute Plan - Discharge Medications Home Medications: Medication Instructions Recorded Confirmed Type Atorvastatin Calcium 40 mg PO HS 12/27/18 06/24/20 History Gabapentin [Neurontin] 1 cap PO BID 12/27/18 06/24/20 History Lisinopril 10 mg PO QAM 12/27/18 06/24/20 History Baclofen 2 tab PO BID 05/21/19 06/24/20 History Klgzg-[id number] 2,000 mg PO BID 05/21/19 06/24/20 History Pantoprazole [Protonix] 40 mg PO QPM 05/21/19 06/24/20 History Glyburide/Metformin HCl 2 tablet PO BID 06/09/20 06/24/20 History [glyBURIDE/metFORMIN] Dicyclomine [Bentyl] 1 tab PO TID 06/11/20 06/24/20 History Sertraline HCl 100 mg PO HS 06/11/20 06/24/20 History traMADol HCl [Ultram] 1 tab PO HS PRN 06/11/20 06/24/20 History ALPRAZolam [Xanax] 0.5 mg PO DAILY PRN 06/25/20 06/25/20 History Allergies: ceftriaxone [From Rocephin] Allergy (Verified 06/24/20 23:34) Hives ertugliflozin [From Steglatro] Allergy (Verified 06/24/20 23:34) severe n/v, dizziness, extreme b/s increse - Discharge Instructions Discharge Instructions:: Your blood sugars have been high you need to follow-up with your primary care doctor and also check your blood sugars at home. You might need additional blood sugar medications. Activity:: Activity as Tolerated Nourishment:: Heart Healthy Diet - Follow up Plan Referrals: RUDY BRITTON MD [Primary Care Provider] - (3 DAYS) Chris Mosqueda MD [Active] - ( DIRECTED ) Disposition: HOME Quality - Care Measures CORE MEASURES:: N/A
== END 2020-06-26 14:43 | disposition home or self-care (01) ==
LOC: ERS 16:32 → INTOOBSV 18:32 → T4-A 18:32
PROVIDERS: ADMIT Internal Medicine; ATTEND Internal Medicine
DX: K66.1 Hemoperitoneum (principal); N20.0 Calculus of kidney; F32.9 Major depressive disorder, single episode, unspecified; E78.5 Hyperlipidemia, unspecified; I10 Essential (primary) hypertension; I48.0 Paroxysmal atrial fibrillation; E11.42 Type 2 diabetes mellitus with diabetic polyneuropathy; N17.9 Acute kidney failure, unspecified; E87.2 Acidosis; G37.3 Acute transverse myelitis in demyelinating disease of central nervous system; Z79.84 Long term (current) use of oral hypoglycemic drugs; Z79.899 Other long term (current) drug therapy; Z88.1 Allergy status to other antibiotic agents; Z88.8 Allergy status to other drugs, medicaments and biological substances
CPT/HCPCS: 36415; 36416; 70551; 71045; 71275; 74177; 80048; 80053; 81003; 81015; 83605; 83690; 83880; 84484; 85025; 85379; 87086; 93005; G0378; Q9967

== ENCOUNTER 2021-08-29 02:48 | Emergency (ER) | payer OTHER ==
[2021-08-29] MEDS ORDERED: Ketorolac Tromethamine 30 MG/ML VIAL ONE (03:26)
[2021-08-29] MEDS ORDERED: Ondansetron PF 4 MG/2 ML Vial ONE (03:26)
[2021-08-29 03:37] LABS: Hemoglobin 14.7 g/dL (14.0-18.0); Mean Corpuscular HGB CONC 37.1 g/dL (32.0-36.0); Mean Corpuscular Hemoglobin 33.3 pg (27.0-31.0); Mean Corpuscular Volume 89.9 fL (78.0-98.0); Mean Platelet Volume 10.4 fL (7.4-10.4); Platelet Count 219 thou/uL (130-400); RBC Distribution Width 12.4 % (11.5-14.5); Red Blood Cell (RBC) Count 4.42 mill/uL (4.70-6.10); White Blood Cell (WBC) Count 9.7 thou/uL (4.8-10.8)
[2021-08-29 04:27] LABS: Band 6 % (5-11); Eosinophils 2 % (0-10); Lymphocytes 21 % (21-51); MDiff Complete? YES; Monocytes 7 % (0-10); Neutrophil 64 % (42-75)
[2021-08-29 04:52] LABS: Bilirubin Negative (Negative); Blood, Urine Negative (Negative); Clarity Clear (Clear); Glucose, Urine (Dipstick) Greater than 1000 mg/dL (Negative); Ketone, Urine 40 mg/dL (Negative); Leukocyte Negative Leu/uL (Negative); Nitrite Negative (Negative); Protein, Urine (Dipstick) 10 mg/dL (Neg-Trace); Specific Gravity, Urine 1.036 (1.002-1.036); Urobilinogen Normal mg/dL (Less than 2); pH, Urine 6.5 (5.0-9.0)
[2021-08-29] MEDS ORDERED: Cyclobenzaprine 10 MG TAB ONE (05:39)
[2021-08-29] MEDS ORDERED: Acetaminophen 500 MG TAB ONE (05:39)
== END 2021-08-29 05:47 | disposition home or self-care (01) ==
LOC: ERS 02:48
DX: M54.16 Radiculopathy, lumbar region (principal); R10.9 Unspecified abdominal pain; E11.65 Type 2 diabetes mellitus with hyperglycemia; I10 Essential (primary) hypertension; E78.5 Hyperlipidemia, unspecified; E78.00 Pure hypercholesterolemia, unspecified
CPT/HCPCS: 36415; 36416; 74176; 81003; 85025; 96374; 96375; J1885; J2405

== ENCOUNTER 2022-02-24 13:55 | Inpatient (IN) | payer OTHER ==
[2022-02-24] MEDS ORDERED: Ketorolac Tromethamine 30 MG/ML VIAL ONE (14:31)
[2022-02-24] MEDS ORDERED: Cyclobenzaprine 10 MG TAB ONE (14:31)
[2022-02-24 14:51] LABS: #Eosinphils 0.2 thou/uL (0.0-0.7); #Lymphocytes 2.6 thou/uL (1.20-3.40); #Monocytes 0.8 thou/uL (0.11-0.59); %Basophils 0.4 % (0.0-1.0); %Eosinophils 1.8 % (0.0-10.0); %Lymphocytes 30.6 % (21.0-51.0); %Monocytes 8.7 % (0.0-10.0); %Neutrophils 58.5 % (42.0-75.0); Hemoglobin 13.7 g/dL (14.0-18.0); Mean Corpuscular HGB CONC 33.8 g/dL (32.0-36.0); Mean Corpuscular Volume 88.6 fL (78.0-98.0); Mean Platelet Volume 8.8 fL (7.4-10.4); Platelet Count 184 thou/uL (130-400); RBC Distribution Width 11.5 % (11.5-14.5); Red Blood Cell (RBC) Count 4.56 mill/uL (4.70-6.10); White Blood Cell (WBC) Count 8.6 thou/uL (4.8-10.8)
[2022-02-24 15:18] LABS: ALT (SGPT) 16 U/L (8-55); AST (SGOT) 13 U/L (5-34); Albumin 3.7 g/dL (3.5-5.0); Alkaline Phosphatase 98 U/L (40-110); Anion Gap 17 mmol/L (10-20); BUN (Urea Nitrogen) 20 mg/dL (8.4-25.7); Bilirubin, Total 0.2 mg/dL (0.2-1.2); Calc. Creatinine Clearance 0 mL/min (70-130); Calcium 9.1 mg/dL (7.8-10.44); Carbon Dioxide 21 mmol/L (22-29); Chloride 102 mmol/L (98-107); Estimated GFR 84; Glucose 333 mg/dL (70-105); Potassium 3.8 mmol/L (3.5-5.1); Protein, Total 6.7 g/dL (6.0-8.3); Sodium 136 mmol/L (136-145)
[2022-02-24] MEDS ORDERED: HYDROcodone/Acetaminophen 5/325 mg Tablet ONE (16:07)
[2022-02-24] MEDS ORDERED: Fentanyl 100 MCG/2 ML VIAL ONE (17:10)
[2022-02-24 19:35] LABS: Bilirubin Negative (Negative); Blood, Urine Negative (Negative); Clarity Clear (Clear); Glucose, Urine (Dipstick) Greater than 1000 mg/dL (Negative); Ketone, Urine Negative (Negative); Leukocyte Negative Leu/uL (Negative); Nitrite Negative (Negative); Protein, Urine (Dipstick) 20 mg/dL (Neg-Trace); Urobilinogen 3 mg/dL (Less than 2); pH, Urine 6.5 (5.0-9.0)
[2022-02-24] MEDS ORDERED: Dextrose 5% in Water 1,000 ML IV PRN (20:59)
[2022-02-24] MEDS ORDERED: Dextrose 50% Abboject 50 ML SYRINGE SLOW IVP PRN (20:59)
[2022-02-24] MEDS ORDERED: Lidocaine Viscous Sol 2% 15 ml UD Cup ONE (21:07)
[2022-02-24] MEDS ORDERED: Cyclobenzaprine 10 MG TAB PO PRN (21:56)
[2022-02-24] MEDS ORDERED: Gabapentin 300 MG CAP PO SCH (22:00)
[2022-02-24 22:14] VITALS: BMI 35.2
[2022-02-24] MEDS ORDERED: Gabapentin 300 MG CAP PO PRN (22:19)
[2022-02-24] MEDS: Dexamethasone 4 mg/ml Vial SLOW IVP SCH (22:28)
[2022-02-24] MEDS: HumaLOG 300 UNITS/3 ML VIAL SC PRN (22:32)
[2022-02-24] MEDS ORDERED: Acetaminophen 325 MG TAB PO PRN (23:18)
[2022-02-25] MEDS: Dexamethasone 4 mg/ml Vial SLOW IVP SCH ×3 (03:17→10:37)
[2022-02-25] MEDS: HumaLOG 300 UNITS/3 ML VIAL SC PRN ×4 (03:37→21:22)
[2022-02-25] MEDS ORDERED: tiZANidine HCl 4 MG TAB PO PRN (07:21)
[2022-02-25 08:19] LABS: #Lymphocytes 0.5 thou/uL (1.20-3.40); #Monocytes 0.1 thou/uL (0.11-0.59); #Neutrophils 6.9 thou/uL (1.40-6.50); %Basophils 0.4 % (0.0-1.0); %Eosinophils 0.3 % (0.0-10.0); %Monocytes 1.1 % (0.0-10.0); %Neutrophils 91.3 % (42.0-75.0); Hemoglobin 15.9 g/dL (14.0-18.0); Mean Corpuscular Hemoglobin 30.2 pg (27.0-31.0); Mean Corpuscular Volume 88.9 fL (78.0-98.0); Mean Platelet Volume 8.8 fL (7.4-10.4); Platelet Count 199 thou/uL (130-400); RBC Distribution Width 11.6 % (11.5-14.5); Red Blood Cell (RBC) Count 5.25 mill/uL (4.70-6.10); White Blood Cell (WBC) Count 7.5 thou/uL (4.8-10.8)
[2022-02-25 08:54] LABS: ALT (SGPT) 19 U/L (8-55); AST (SGOT) 14 U/L (5-34); Albumin 4.2 g/dL (3.5-5.0); Alkaline Phosphatase 96 U/L (40-110); Anion Gap 15 mmol/L (10-20); BUN (Urea Nitrogen) 17 mg/dL (8.4-25.7); Bilirubin, Total 0.5 mg/dL (0.2-1.2); Calc. Creatinine Clearance 144 mL/min (70-130); Calcium 9.6 mg/dL (7.8-10.44); Carbon Dioxide 23 mmol/L (22-29); Chloride 99 mmol/L (98-107); Estimated GFR 100; Globulin 3.3 g/dL (2.4-3.5); Glucose 375 mg/dL (70-105); Potassium 4.3 mmol/L (3.5-5.1); Protein, Total 7.5 g/dL (6.0-8.3); Sodium 133 mmol/L (136-145)
[2022-02-25] MEDS ORDERED: Enoxaparin Sodium 40 MG/0.4 ML SYRINGE SC SCH (09:00)
[2022-02-25] MEDS: Gabapentin 300 MG CAP PO SCH ×3 (10:30→21:17)
[2022-02-25] MEDS: Lisinopril 10 MG TAB PO SCH (10:31)
[2022-02-25] MEDS: Acetaminophen/Codeine 30-300mg Tablet PO PRN ×2 (10:35→21:19)
[2022-02-25] MEDS: Baclofen 10 MG TAB PO PRN ×2 (12:33→21:18)
[2022-02-25] MEDS ORDERED: ALPRAZolam 0.25 MG TAB PO PRN (12:53)
[2022-02-25] MEDS ORDERED: Magnevist 469MG/ML 20 ML VIAL ONE (14:46)
[2022-02-25] MEDS ORDERED: Ondansetron ORAL SOLN. 4 MG/5 ML UDCUP PO PRN (16:36)
[2022-02-25] MEDS ORDERED: Simethicone Chewable 80 MG TAB PO PRN (19:18)
[2022-02-25] MEDS: Atorvastatin Calcium 40 MG TAB PO SCH (21:18)
[2022-02-26] MEDS: HumaLOG 300 UNITS/3 ML VIAL SC PRN ×4 (05:33→22:09)
[2022-02-26] MEDS: Acetaminophen/Codeine 30-300mg Tablet PO PRN ×4 (05:38→22:02)
[2022-02-26 07:49] LABS: Hemoglobin A1c 12.1 % (4.0-6.0)
[2022-02-26] MEDS: Lisinopril 10 MG TAB PO SCH (09:19)
[2022-02-26] MEDS: Gabapentin 300 MG CAP PO SCH ×3 (09:19→22:03)
[2022-02-26] MEDS ORDERED: Insulin Glargine 30 UNITS/0.3 ML VIAL SC SCH ×2 (09:30→21:00)
[2022-02-26] MEDS: Morphine 2 MG/ML VIAL SLOW IVP PRN (19:33)
[2022-02-26] MEDS: Atorvastatin Calcium 40 MG TAB PO SCH (22:02)
[2022-02-26] MEDS: Baclofen 10 MG TAB PO PRN (22:04)
[2022-02-27] MEDS: Acetaminophen/Codeine 30-300mg Tablet PO PRN ×4 (02:08→20:17)
[2022-02-27] MEDS: Morphine 2 MG/ML VIAL SLOW IVP PRN ×4 (06:04→23:58)
[2022-02-27] MEDS: HumaLOG 300 UNITS/3 ML VIAL SC PRN ×3 (06:12→17:33)
[2022-02-27] MEDS ORDERED: Insulin Glargine 30 UNITS/0.3 ML VIAL SC SCH ×2 (09:00→21:00)
[2022-02-27] MEDS: Lisinopril 10 MG TAB PO SCH (09:15)
[2022-02-27] MEDS: Gabapentin 300 MG CAP PO SCH ×3 (09:16→20:14)
[2022-02-27] MEDS: Baclofen 10 MG TAB PO SCH ×2 (09:16→20:16)
[2022-02-27] MEDS: Insulin Glargine 30 UNITS/0.3 ML VIAL SC SCH (09:20)
[2022-02-27] MEDS ORDERED: Ondansetron PF 4 MG/2 ML Vial IVP PRN (19:02)
[2022-02-27] MEDS ORDERED: Ondansetron ODT 4 MG TAB PO PRN (19:21)
[2022-02-27] MEDS: Atorvastatin Calcium 40 MG TAB PO SCH (20:14)
[2022-02-28] MEDS: Acetaminophen/Codeine 30-300mg Tablet PO PRN ×4 (06:12→21:23)
[2022-02-28] MEDS: HumaLOG 300 UNITS/3 ML VIAL SC PRN ×3 (06:13→16:30)
[2022-02-28] MEDS: Polyethylene Glycol 3350 17 GM Packet PO SCH (06:13)
[2022-02-28] MEDS: Gabapentin 300 MG CAP PO SCH ×3 (09:36→21:22)
[2022-02-28] MEDS: Lisinopril 10 MG TAB PO SCH (09:37)
[2022-02-28] MEDS: Baclofen 10 MG TAB PO SCH ×2 (09:37→21:23)
[2022-02-28] MEDS: Morphine 2 MG/ML VIAL SLOW IVP PRN ×2 (09:38→14:07)
[2022-02-28] MEDS: Insulin Glargine 30 UNITS/0.3 ML VIAL SC SCH (09:39)
[2022-02-28] MEDS ORDERED: Insulin Glargine 30 UNITS/0.3 ML VIAL SC SCH (21:00)
[2022-02-28] MEDS: Atorvastatin Calcium 40 MG TAB PO SCH (21:22)
[2022-03-01] MEDS: Morphine 2 MG/ML VIAL SLOW IVP PRN ×2 (02:40→09:08)
[2022-03-01] MEDS: Baclofen 10 MG TAB PO SCH ×2 (09:12→21:02)
[2022-03-01] MEDS: Gabapentin 300 MG CAP PO SCH ×3 (09:16→21:01)
[2022-03-01] MEDS: Polyethylene Glycol 3350 17 GM Packet PO SCH (09:16)
[2022-03-01] MEDS: Insulin Glargine 30 UNITS/0.3 ML VIAL SC SCH (09:16)
[2022-03-01] MEDS: Lisinopril 10 MG TAB PO SCH (09:16)
[2022-03-01] MEDS ORDERED: fentaNYL Citrate/PF 100 MCG/2 ML SYRINGE ONE (12:04)
[2022-03-01] MEDS ORDERED: HYDROmorphone 0.5 MG/0.5 ML SYRINGE ONE (12:05)
[2022-03-01] MEDS ORDERED: Clindamycin/D5W 900 mg/50 ml Premix Bag ONE (12:16)
[2022-03-01] MEDS ORDERED: Lidocaine 1% PF 5 ML VIAL ONE (12:32)
[2022-03-01] MEDS ORDERED: ePHEDrine 50 MG/ML VIAL ONE (12:32)
[2022-03-01] MEDS ORDERED: Dexamethasone 20 MG/5 ML VIAL ONE (12:32)
[2022-03-01] MEDS ORDERED: Glycopyrrolate 0.2 MG/ML 5 ML SYRINGE ONE (12:32)
[2022-03-01] MEDS ORDERED: Phenylephrine 10 MG/ML VIAL ONE (12:32)
[2022-03-01] MEDS ORDERED: Rocuronium Bromide 10 MG/ML (10ML VIAL) ONE (12:32)
[2022-03-01] MEDS ORDERED: PROPOFOL 200 MG/20 ML VIAL ONE (12:32)
[2022-03-01] MEDS ORDERED: Neostigmine Methylsulfate 3 MG/3 ML SYRINGE ONE (12:32)
[2022-03-01] MEDS ORDERED: Ondansetron PF 4 MG/2 ML Vial ONE (12:32)
[2022-03-01] MEDS ORDERED: Ondansetron HCl/PF 4 MG/2 ML Vial IVP PRN (14:00)
[2022-03-01] MEDS ORDERED: Promethazine HCl 25 MG/ML VIAL IM PRN (14:00)
[2022-03-01] MEDS ORDERED: PACU-Morphine 4MG/ML VIAL SLOW IVP PRN (14:00)
[2022-03-01] MEDS ORDERED: Promethazine HCl 25 MG/ML VIAL IVPB PRN (14:00)
[2022-03-01] MEDS ORDERED: Fentanyl 100 MCG/2 ML VIAL ONE (14:16)
[2022-03-01] MEDS: Clindamycin/D5W 900 MG in Premix Bag 1 BAG IVPB SCH ×2 (16:06→21:03)
[2022-03-01] MEDS: HumaLOG 300 UNITS/3 ML VIAL SC PRN ×2 (17:41→21:04)
[2022-03-01] MEDS: Acetaminophen/Codeine 30-300mg Tablet PO PRN (20:35)
[2022-03-01] MEDS: Atorvastatin Calcium 40 MG TAB PO SCH (20:35)
[2022-03-01] MEDS ORDERED: Insulin Glargine 30 UNITS/0.3 ML VIAL SC SCH (21:00)
[2022-03-02] MEDS: Clindamycin/D5W 900 MG in Premix Bag 1 BAG IVPB SCH (06:49)
[2022-03-02] MEDS: HumaLOG 300 UNITS/3 ML VIAL SC PRN (06:50)
[2022-03-02] MEDS: Acetaminophen/Codeine 30-300mg Tablet PO PRN ×2 (06:56→11:49)
[2022-03-02 08:28] VITALS: BP 131/80; TEMP 98.1
[2022-03-02] MEDS: Gabapentin 300 MG CAP PO SCH ×2 (08:36→15:18)
[2022-03-02] MEDS: Baclofen 10 MG TAB PO SCH (08:37)
[2022-03-02] MEDS: Lisinopril 10 MG TAB PO SCH (08:37)
[2022-03-02] MEDS: Polyethylene Glycol 3350 17 GM Packet PO SCH ×2 (08:38→11:24)
[2022-03-02] MEDS: Insulin Glargine 30 UNITS/0.3 ML VIAL SC SCH (08:39)
== END 2022-03-02 15:44 | disposition home or self-care (01) | DRG 520 ==
LOC: ERS 13:55 → T4-B 20:09
PROVIDERS: ADMIT Emergency Medicine; ATTEND Emergency Medicine
PROC: 01NB0ZZ Release Lumbar Nerve, Open Approach (ICD-10-PCS; principal; 2022-03-01)
PROC: 0SB20ZZ Excision of Lumbar Vertebral Disc, Open Approach (ICD-10-PCS; 2022-03-01)
DX: M51.16 Intervertebral disc disorders with radiculopathy, lumbar region (principal); E11.9 Type 2 diabetes mellitus without complications; I10 Essential (primary) hypertension; E78.5 Hyperlipidemia, unspecified; R33.9 Retention of urine, unspecified; F32.A Depression, unspecified; G89.4 Chronic pain syndrome; E78.00 Pure hypercholesterolemia, unspecified; F41.9 Anxiety disorder, unspecified; H81.12 Benign paroxysmal vertigo, left ear; Z20.822 Contact with and (suspected) exposure to COVID-19; Z86.16 Personal history of COVID-19; Z88.1 Allergy status to other antibiotic agents; Z88.8 Allergy status to other drugs, medicaments and biological substances; Z79.899 Other long term (current) drug therapy; Z98.890 Other specified postprocedural states; Z90.79 Acquired absence of other genital organ(s)
CPT/HCPCS: 36415; 36416; 51702; 70553; 76000; 80053; 81003; 83036; 85025; 85652; 86140; 96372; 96374; A9579; C1713; J1100; J1170; J1815; J1885; J2270; J2370; J2405; J2704; J3010; J3370; J3490; U0003; U0005